=== PATIENT | female | born 1965 | race Caucasian/White ===

== ENCOUNTER → 2020-10-01 17:18 | Outpatient (CLI) | payer MEDICAID, SELFPAY ==
[2020-10-03 09:13] LABS: Hep A Ab, IgM Negative (Negative); Hepatitis B Core Antibody IgM Negative (Negative); Hepatitis B Surface Antigen Negative (Negative); Hepatitis C Antibody <0.1 s/co ratio (0.0-0.9)
== END ==
PROVIDERS: Visit Provider Nurse Practitioner Family
DX: B19.20 Unspecified viral hepatitis C without hepatic coma (principal); F19.10 Other psychoactive substance abuse, uncomplicated; Z76.89 Persons encountering health services in other specified circumstances
CPT/HCPCS: 80074

== ENCOUNTER 2022-08-03 17:30 | Emergency (ER) | payer MEDICAID, SELFPAY ==
[2022-08-03 17:45] VITALS: BP 128/98; PULSE 97; RESP 18; O2SAT 100; BMI 16.9
[2022-08-03 18:35] VITALS: BP 128/98; PULSE 97; RESP 18; TEMP 36.8; O2SAT 100; BMI 16.9
--- NOTE | 2022-08-03 19:01 | EXP.UTC ---
Discharge Plan Disposition Patient Disposition: Home, Self-Care Condition: Good Prescriptions Prescriptions: New amoxicillin 500 mg capsule 500 mg PO BID 10 Days Qty: 30 0RF No Action prednisone 20 mg tablet 20 mg PO BID 5 Days Qty: 10 0RF triamcinolone acetonide 0.5 % cream 1 applic TOPICAL BID Qty: 15 0RF benzonatate [Tessalon Perles] 100 mg capsule 100 mg PO TID PRN (Reason: cough) Qty: 20 0RF albuterol sulfate 90 mcg/actuation HFA aerosol inhaler 2 puff INHALATION Q4-6H PRN (Reason: shortness of breath or wheezing) Qty: 8.5 2RF Dulera 100-5 mcg/actuation HFA aerosol inhaler 2 puff INHALATION BID Qty: 13 2RF famotidine 20 mg tablet 20 mg PO DAILY Qty: 30 1RF hydroxyzine pamoate [Vistaril] 25 mg capsule 25 mg PO TID PRN (Reason: itching) Qty: 60 0RF Referrals Follow up/Referrals: Nadira Chavez MD [Referring] - See instructions (Call for appointment at the [place] office) Madhu Greenfield MD [Primary Care Provider] - See instructions Activity Restrictions/Add. Instructions Additional Instructions/Restrictions: Take medication as prescribed FOllow up with Dentist on broken teeth FOllow up with your Family Doctor as scheduled and sooner if no improvement or any worsening of symptoms Return if needed Straight to ER if any life threatening symptoms Clinical Impressions Clinical Impression: Dental infection, Otitis media Instructions Patient Instructions: Middle Ear Infection, Tooth Abscess Discharge ED Provider: Rhea Busch [facility] General Stated complaint: right ear pain, jaw pain Mode of Arrival: Ambulatory Source of Information: Patient Limitations: No Limitations Time Seen by Provider: 08/03/22 18:45 Description of Symptoms (Recalled from Triage Doc. by RN): PATIENT C/O RIGHT EAR AND JAW PAIN HEENT Symptoms (Recalled from RN notes): Yes Resp Symptoms (Recalled from RN notes): No Skin Symptoms (Recalled from RN notes): No MS Symptoms (Recalled from RN notes): No Functional Status (Recalled from RN notes): WNL History of Present Illness Provider Complaint: Patient states that she has been having pain in her right ear and has several broken and bad teeth and they area causing her pain States that also her brother recently came in and she thinks he may have had mites and give them too her but she hasnt seen anything on her States she also has a cyst like area on the top of her head that is been there for a couple of years wanting a referral to Dermatology for it Related Data Previous Rx's Medication Instructions Recorded benzonatate 100 mg capsule 100 mg PO TID PRN cough #20 caps 10/01/20 (Tessalon Perles) prednisone 20 mg tablet 20 mg PO BID 5 days #10 tabs 10/01/20 triamcinolone acetonide 0.5 % 1 applic topical BID #15 grams 10/01/20 topical cream albuterol sulfate 90 mcg/actuation 2 puff inhalation Q4-6H PRN 10/02/20 aerosol inhaler shortness of breath or wheezing #8.5 grams mometasone-formoterol HFA 100 2 puff inhalation BID #13 grams 10/02/20 mcg-5 mcg/actuation aerosol inhaler (Dulera) famotidine 20 mg tablet 20 mg PO DAILY #30 tabs 11/11/20 hydroxyzine pamoate 25 mg capsule 25 mg PO TID PRN itching #60 caps 11/11/20 (Vistaril) amoxicillin 500 mg capsule 500 mg PO BID 10 days #30 caps 08/03/22 Allergies Allergy/AdvReac Type Severity Reaction Status Date / Time No Known Allergies Allergy Unverified 10/01/20 15:17 Worker's Comp Is this a Worker's Comp case?: No PFSH PFS Disclaimer: The information contained in this section may have been updated after the patient was seen, as this information can be updated by other users. Social History Smoking Status: Current every day smoker tobacco type: cigarettes packs per day: 1 alcohol intake: current current occupational status: unemployed Travel in the last 8 weeks: None ROS Obtained: Yes All systems reviewed & no additional complaints except as documented Const
[2022-08-03 19:06] VITALS: BP 128/98; PULSE 97; RESP 18; TEMP 36.8; O2SAT 100
== END 2022-08-03 19:10 | disposition home or self-care (01) ==
LOC: ER 17:47 → UTC 17:47 → ER 18:21 → UTC 18:23
PROVIDERS: Emergency Provider Nurse Practitioner; PCP Emergency Medicine
DX: H66.91 Otitis media, unspecified, right ear (principal); R68.84 Jaw pain; K04.7 Periapical abscess without sinus; F17.210 Nicotine dependence, cigarettes, uncomplicated
CPT/HCPCS: 99204; 99212; G0463

== ENCOUNTER 2023-10-03 11:31 | Outpatient (CLI) | payer MEDICAID, SELFPAY ==
[2023-10-03 11:40] LABS: Alanine Aminotransferase 15 U/L (12-78); Albumin Level 4.6 g/dl (3.5-5.0); Albumin/Globulin Ratio 1.5 (1.1-1.8); Alkaline Phosphatase 71 U/L (38-126); Anion Gap 13.7 mEq/L (5-15); Aspartate Amino Transferase 27 U/L (14-36); Bilirubin,Total 0.4 mg/dl (0.2-1.3); Blood Urea Nitrogen 16 mg/dl (7-17); Calcium 10.9 mg/dl (8.4-10.2); Carbon Dioxide 30 mmol/L (22.0-30.0); Chloride 104 mmol/L (98-107); Cholesterol 247 mg/dl (140-200); Estimated Glomerular Filt Rate 87 ml/min (>60); GFR (African American) 105 ML/MIN (>60); Globulin 3.1 g/dL (1.3-3.2); Glucose 99 mg/dl (74-100); HDL Cholesterol 82 mg/dl (40-60); Potassium 5.7 mmoL/L (3.5-5.1); Sodium 142 mmol/L (136-145); Total Protein,Serum 7.7 g/dl (6.3-8.2); Triglycerides 113 mg/dl (30-150); VLDL Cholesterol 23 mg/dL (0-40)
[2023-10-03 11:43] LABS: Basophils # 0.1 K/mm3 (0-0.2); Basophils % 1.3 % (0.1-2.0); Eosinophils # 0.4 K/mm3 (0.0-0.4); Eosinophils % 4.9 % (0.1-12.0); Hematocrit 48.4 % (37.0-47.0); Hemoglobin 15.3 g/dL (12.2-16.2); Lymphocytes # 2.2 K/mm3 (0.7-4.5); Lymphocytes % 29.1 % (10-50); Mean Corpuscular HGB Conc 31.5 g/dL (31.8-35.4); Mean Corpuscular Hemoglobin 31.5 pg (27.0-31.2); Mean Corpuscular Volume 100.1 fl (81-99); Mean Platelet Volume 9.6 fl (7.4-10.4); Monocytes # 0.4 K/mm3 (0.1-1.0); Monocytes % 5.7 % (1.7-9.3); Neutrophils # 4.5 K/mm3 (1.8-7.8); Platelet Count 589 K/mm3 (142-424); Red Blood Count 4.84 M/mm3 (4.20-5.40); Red Cell Distribution Width 14.4 % (11.5-17.5); White Blood Count 7.6 K/mm3 (4.8-10.8)
[2023-10-03 11:56] LABS: 25-OH Vitamin D, Total 34.2 ng/mL (30-100)
[2023-10-03 11:59] LABS: Hemoglobin A1C 5.5 % (4.0-6.0)
[2023-10-03 12:11] LABS: Thyroid Stimulating Hormone 0.93 uIU/mL (0.465-4.68)
[2023-10-03 12:24] LABS: Direct LDL Cholesterol 132.88 mg/dL (100-129)
[2023-10-03 17:14] LABS: HIV (1&2) Antibody Rapid NONREACTIVE (NONREACTIVE)
[2023-10-04 05:28] LABS: HCV Ab Non Reactive (Non Reactive)
== END 2023-10-03 23:59 | disposition home or self-care (01) ==
LOC: LAB.DROPOF 11:32
PROVIDERS: PCP Family Medicine; Visit Provider Family Medicine
DX: F19.10 Other psychoactive substance abuse, uncomplicated (principal); R53.83 Other fatigue
CPT/HCPCS: 86803; 86703; 80050; 80053; 80061; 82306; 83036; 84443; 85025

== ENCOUNTER 2023-10-13 16:41 | Emergency (ER) | payer MEDICAID, SELFPAY ==
--- NOTE | 2023-10-13 16:55 | PC.NURSE ---
Attempted to traige patient. Upon arrival to room patient not in it. Went to registration who states she walked out.
--- NOTE | 2023-10-13 17:01 | XR_ITS ---
PROCEDURE INFORMATION: Exam: XR Right Humerus Exam date and time: 10/13/2023 5:02 PM Age: 58 years old Clinical indication: Injury or trauma; Fall; Blunt trauma (contusions or hematomas); Arm, upper; Right; Additional info: Fall, pain TECHNIQUE: Imaging protocol: Radiologic exam of the right humerus. Views: 2 or more views. COMPARISON: No relevant prior studies available. FINDINGS: Bones/joints: Normal. No acute fracture identified. Soft tissues: Normal. IMPRESSION: No acute findings.
--- NOTE | 2023-10-13 17:01 | XR_ITS ---
PROCEDURE INFORMATION: Exam: XR Right Elbow Exam date and time: 10/13/2023 5:05 PM Age: 58 years old Clinical indication: Injury or trauma; Fall; Blunt trauma (contusions or hematomas); Elbow; Right; Additional info: Fall, pain TECHNIQUE: Imaging protocol: Radiologic exam of the right elbow. Views: 1 or 2 views. COMPARISON: CR Forearm R 10/13/2023 5:05 PM FINDINGS: Bones/joints: Normal. No acute fracture identified. Soft tissues: Normal. IMPRESSION: No acute findings.
--- NOTE | 2023-10-13 17:01 | XR_ITS ---
PROCEDURE INFORMATION: Exam: XR Right Forearm Exam date and time: 10/13/2023 5:05 PM Age: 58 years old Clinical indication: Injury or trauma; Fall; Blunt trauma (contusions or hematomas); Arm, lower; Right; Additional info: Fall, pain TECHNIQUE: Imaging protocol: Radiologic exam of the right forearm. Views: 2 views. COMPARISON: CR XR WRIST RT 2V 10/13/2023 5:04 PM FINDINGS: Bones/joints: Normal. No acute fracture identified. Soft tissues: Normal. IMPRESSION: No acute findings.
--- NOTE | 2023-10-13 17:01 | XR_ITS ---
PROCEDURE INFORMATION: Exam: XR Right Wrist Exam date and time: 10/13/2023 5:04 PM Age: 58 years old Clinical indication: Injury or trauma; Fall; Blunt trauma (contusions or hematomas); Wrist; Right; Additional info: Fall, pain TECHNIQUE: Imaging protocol: Radiologic exam of the right wrist. Views: 1 or 2 views. COMPARISON: No relevant prior studies available. FINDINGS: Bones/joints: Normal. No acute fracture identified. Soft tissues: Normal. IMPRESSION: No acute findings.
[2023-10-13 17:02] VITALS: BP 148/55; PULSE 95; RESP 16; TEMP 36.6; O2SAT 99; BMI 18.6
--- NOTE | 2023-10-13 17:02 | HMH.EDGENADL ---
Discharge Plan Disposition Patient Disposition: Home, Self-Care Condition: Good Prescriptions Prescriptions: New acetaminophen 325 mg capsule 650 mg PO Q6H PRN (Reason: fever or pain) Qty: 30 0RF ibuprofen 600 mg tablet 600 mg PO Q8H PRN (Reason: pain) Qty: 30 0RF No Action albuterol sulfate [Proventil HFA] 90 mcg/actuation HFA aerosol inhaler 1 inh inhalation Q6H PRN (Reason: shortness of breath or wheezing) Qty: 8.5 0RF ibuprofen 600 mg tablet 600 mg PO Q8H Qty: 90 2RF bupropion HCl [Wellbutrin SR] 150 mg tablet sustained-release 12 hr 150 mg PO DAILY Qty: 30 2RF varenicline [Chantix Starting Month Box] 0.5 mg (11)- 1 mg (42) tablets,dose pack See Rx Instructions PO PER PKG DIR Qty: 53 0RF Rx Instructions: PO PER PKG DIR famotidine [Pepcid] 40 mg tablet 40 mg PO DAILY Qty: 30 2RF Referrals Follow up/Referrals: Vita Soriano APRN [Primary Care Provider] - See instructions Activity Restrictions/Add. Instructions Additional Instructions/Restrictions: You were evaluated in the emergency department today. At this time, x-rays do not demonstrate any broken bones. Please ice, elevate, and rest your arm to help reduce pain and swelling. Take Tylenol and ibuprofen every 4-6 hours at home as needed for pain. Return to the emergency department for new or worsening symptoms. Follow-up with your primary care provider over the next week for reassessment. Clinical Impressions Clinical Impression: Contusion of forearm, right Stand Alone Forms Stand Alone Forms: Work/School Release Instructions Patient Instructions: DI for Acute Pain -- Adult, DI for Arm Pain Print Language Print Language: Hungarian Discharge ED Provider: Veena Jackson General Adult HPI General Chief complaint: PAIN Stated complaint: AO 10/12/23 2100 injury right arm Time Seen by Provider: 10/13/23 16:56 History of Present Illness HPI narrative: This patient is a 58-year-old female who denies significant past medical history presenting to the emergency department for evaluation with concern for right arm pain. Patient reports that she was walking up wet deck steps yesterday around 9 PM when she slipped, landing on her left elbow. She did not fall the way down the steps. She did not hit her head or lose consciousness. No other concerns or complaints at this time. No numbness or tingling. Her pain is mostly at her right elbow and right forearm, and she has limited range of motion secondary to pain. Last dose of medication was ibuprofen around 1 PM. She was well prior to this without any other issues. Related Data Previous Rx's ?Medication ?Instructions ?Recorded albuterol sulfate 90 mcg/actuation 1 inh inhalation Q6H PRN shortness 10/03/23 aerosol inhaler (Proventil HFA) of breath or wheezing #8.5 grams bupropion HCl 150 mg tablet,12 hr 150 mg PO DAILY #30 ea 10/03/23 sustained-release (Wellbutrin SR) famotidine 40 mg tablet (Pepcid) 40 mg PO DAILY #30 tabs 10/03/23 ibuprofen 600 mg tablet 600 mg PO Q8H #90 tabs 10/03/23 varenicline 0.5 mg (11)-1 mg (42) See Rx Instructions PO PER PKG DIR 10/03/23 tablets in a dose pack (Chantix #53 tabs Starting Month Box) acetaminophen 325 mg capsule 650 mg (2 x 325 mg) PO Q6H PRN 10/13/23 fever or pain #30 caps ibuprofen 600 mg tablet 600 mg PO Q8H PRN pain #30 tabs 10/13/23 Allergies Allergy/AdvReac Type Severity Reaction Status Date / Time No Known Allergies Allergy Verified 10/03/23 08:38 [facility] Disclaimer: The information contained in this section may have been updated after the patient was seen, as this information can be updated by other users. Medical History Clavicle fracture Surgical History Hip joint replacement status Family History Other Cancer FHx: mental illness Social History Smoking Status: Current every day smoker tobacco type: cigarettes packs per day: 1 alcohol intake: current substance use type: marijuana current occupational status: unemployed Travel in the last 8 weeks: None ROS Obtained: Yes All systems reviewed & no additional complaints except as documented Physical Exam General General appearance: alert and in no apparent distress Head Head exam: atraumatic and normocephalic Eye Eye exam: Present normal appearance, PERRL and EOMI ENT ENT exam: Present normal exam, normal oropharynx, mucous membranes moist and normal external ear exam Neck Neck exam: Present normal inspection, full ROM and trachea midline; Absent tenderness Chest Chest inspection: Present normal inspection and symmetric chest wall rise; Absent tenderness Respiratory Respiratory exam: Present normal lung sounds bilaterally; Absent respiratory distress, wheezes, stridor or accessory muscle use Cardiovascular Cardiovascular exam: Present regular rate and normal rhythm Abdominal Exam Abdominal exam: Present soft; Absent distention, tenderness or guarding Extremities Exam Extremities exam: Present tenderness (Tender to palpation of the right elbow and proximal forearm. All compartments soft. Neurovascularly intact distally.), normal capillary refill and other (Superficial abrasions to the right forearm); Absent full ROM (Limited range of motion of the right elbow secondary to pain) or edema Back Exam Back exam: Present normal inspection and full ROM; Absent tenderness Neurological Exam Neurological exam: Present alert, oriented X3, CN II-XII intact and normal gait; Absent motor sensory deficit Psychiatric Psychiatric exam: Present normal affect and normal mood Skin Skin exam: Present warm and dry Medical Decision Making Medical Records Medical records reviewed: Yes I reviewed the patient's medical records. Frank Inquiry Pt receiving controlled substance: No Vital Signs: 10/13/23 17:02 10/13/23 18:03 Temperature 98 F 98 F Temperature Source Oral Pulse Rate 76 Pulse Rate [Left Radial] 95 H Respiratory Rate 16 16 Blood Pressure 101/72 L Blood Pressure [Right Arm] 148/55 H Blood Pressure Mean [Right Arm] 86 Blood Pressure Source [Right Arm] Automatic Cuff Blood Pressure Position [Right Arm] Sitting 02 Sat by Pulse Oximetry 99 Oxygen Delivery Method Room Air Room Air Lab Data Lab results reviewed: Yes I reviewed the patient's lab results. Orders (Tests/Meds): ED MEDICATIONS Discontinued Medications Generic Name Dose Route Start Last Admin Trade Name Freq PRN Reason Stop Dose Admin Acetaminophen 1,000 mg 10/13/23 17:01 10/13/23 17:08 Acetaminophen 500mg Tab PO 10/13/23 17:02 1,000 mg ONCE ONE Administration Ketorolac Tromethamine 30 mg 10/13/23 17:01 10/13/23 17:07 Ketorolac 30mg/Ml Vial IM 10/13/23 17:02 30 mg ONCE ONE Administration ORDERS Category Date Time Status Elbow XR right 2 views [XR elbow RT 2V] Stat Exams 10/13/23 17:01 Completed Forearm XR right 2 views [XR forearm RT 2V] Stat Exams 10/13/23 17:01 Completed Humerus XR right [XR humerus RT] Stat Exams 10/13/23 17:01 Completed Wrist XR right 2 views [XR wrist RT 2V] Stat Exams 10/13/23 17:01 Completed Medical Decision Narrative: In summary, this patient is a 58-year-old female presenting to the Emergency Department for evaluation of right elbow pain after a fall that happened yesterday. Differential diagnoses considered include but are not limited to fracture, contusion, dislocation, strain/pain, neurovascular injury. Ruling out the most morbid conditions drove assessment. On exam, the patient is well-appearing. She is neurovascularly intact and all compartments are soft. No open wounds overlying area of pain Workup included x-rays of the injured right upper extremity. She was given IM Toradol and oral Tylenol for symptomatic improvement of pain. I independently interpreted x-ray prior to the radiologist read and noted obvious acute fracture or dislocation. Please see their read for final interpretation. On reassessment, the patient is resting comfortably. She remains neurologically intact in her upper extremity. She has significant pain with movement, so she was given sling for comfort and support. I advised that she follow-up very closely with her primary care provider for monitoring and should only use the sling as needed for severe discomfort, as she needs to maintain mobility is much as possible. I gave her instructions for supportive management of likely contusion/strain/sprain. She was given prescriptions for Tylenol and ibuprofen at her request. She was discharged with strict return precautions and instructions for close outpatient follow-up. Critical Care Critical Care Time Critical Care Time: No
[2023-10-13] MEDS: KETOROLAC 30MG/ML VIAL 30 MG IM (17:07)
[2023-10-13] MEDS: ACETAMINOPHEN 500MG TAB 1000 MG PO (17:08)
[2023-10-13 18:03] VITALS: BP 101/72; PULSE 76; RESP 16; TEMP 36.6; O2SAT 98
== END 2023-10-13 18:04 | disposition home or self-care (01) ==
PROVIDERS: Emergency Provider Emergency Medicine; PCP Family Medicine
DX: S50.11XA Contusion of right forearm, initial encounter (principal); M79.631 Pain in right forearm; M25.521 Pain in right elbow; W10.8XXA Fall (on) (from) other stairs and steps, initial encounter
CPT/HCPCS: 73060; 73070; 73090; 73100; 96372; 99283; J1885

== ENCOUNTER 2024-02-01 16:31 | Emergency (ER) | payer MEDICAID, SELFPAY ==
[2024-02-01] VITALS (7 sets, daily range): BP systolic 114–164; BP diastolic 62–94; PULSE 91–121; RESP 14–20; TEMP 37; O2SAT 98–99; BMI 19.3
--- NOTE | 2024-02-01 16:32 | ECG_ITS ---
APPROVED REPORT Exam: Resting ECG HR:106 bpm ECG Measurements Heart Rate 106 AXES NE 183 P 77 QRSd 74 QRS 86 QT 326 T 76 QTc 388 Conclusion SINUS TACHYCARDIA POSSIBLE LEFT ATRIAL ENLARGEMENT [-0.1mV P-WAVE IN V1/V2] ABNORMAL RHYTHM ECG Electronically signed by : SHAYLEE GARCIA, 02/01/2024 23:09:00
--- NOTE | 2024-02-01 16:43 | ED_ITS ---
<Statement entered by Veena Jackson DO - 02/01/24 19:45> I was consulted by the JASE, and we discussed the complexity of the problems being addressed. I approved the treatment and management plan for this patient's care in the emergency department, thus performing a substantive portion of the medical decision making. Veena Jackson DO Discharge Plan Prescriptions Prescriptions: No Action omeprazole 20 mg capsule,delayed release(DR/EC) 20 mg PO DAILY Qty: 90 2RF cetirizine [All Day Allergy (cetirizine)] 10 mg tablet 10 mg PO DAILY PRN (Reason: allergy symptoms) Qty: 30 0RF amoxicillin 500 mg tablet 500 mg PO BID 10 Days Qty: 20 0RF azelastine 137 mcg (0.1 %) spray,non-aerosol 137 mcg intranasal BID Qty: 8.22 2RF Rx Instructions: administer into each nostril amitriptyline 75 mg tablet 75 mg PO DAILY Qty: 30 2RF acyclovir 800 mg tablet 800 mg PO BID PRN (Reason: cold sores) Qty: 30 2RF albuterol sulfate [Ventolin HFA] 90 mcg/actuation HFA aerosol inhaler See Rx Instructions .ROUTE .COMPLEX Qty: 18 0RF Dose Instruction: 1 PUFF INHALED BY MOUTH EVERY 6 HOURS NEEDED FOR SHORTNESS OF BREATH OR WHEEZING Rx Instructions: 1 PUFF INHALED BY MOUTH EVERY 6 HOURS NEEDED FOR SHORTNESS OF BREATH OR WHEEZING ibuprofen 600 mg tablet 600 mg PO Q8H PRN (Reason: pain) Qty: 30 0RF promethazine 12.5 mg tablet 12.5 mg PO TID PRN (Reason: nausea and vomiting) Qty: 12 0RF promethazine-DM 6.25-15 mg/5 mL syrup 5 ml PO Q4-6H PRN (Reason: cough) Qty: 473 0RF acetaminophen 325 mg capsule 650 mg PO Q6H PRN (Reason: fever or pain) Qty: 30 0RF Referrals Follow up/Referrals: Roseline Nina APRN [Nurse Practitioner] - See instructions Provider,MD Evelin [Referring] - See instructions Greg Borjas MD [Staff Physician] - See instructions Activity Restrictions/Add. Instructions Additional Instructions/Restrictions: I have referred you both to cardiology for further workup and restratification given your risk factors and age. I have also referred you to behavioral health for possibility of better management of your anxiety disorder. Please follow-up with your PCP within 1 week for recheck. Follow-up with PCP sooner if you have recurrence or worsening of her symptoms or return to the ER as needed Clinical Impressions Clinical Impression: Acute chest pain, ANANDA (generalized anxiety disorder) Instructions Patient Instructions: DI for Chest Pain, DI for Anxiety -- Adult Print Language Print Language: Palauan Discharge ED Provider: Veena Jackson HPI <SAEED Robles - Last Filed: 02/01/24 19:27> General Chief Complaint: Chest Pain Stated Complaint: Chest Pain, Leg Pain, Back Pain Time Seen by Provider: 02/01/24 16:35 History of Present Illness HPI narrative: Patient presents for evaluation of chest pain. Patient reports that she has had chest pain that she describes as chest pressure, since 630 last night. She states that the provoking event is a lot of stress and conflict in her family and personal life. She does not have a known history of cardiac disease but does have a known history of anxiety and to the best my ability determinates only being managed with amitriptyline at bedtime. She states that the pain does not radiate and since 630 this morning it has been continuous. She denies any headache shortness of breath fever chills hemoptysis hematochezia melena nausea vomiting diarrhea. She does report feeling extraordinarily anxious. Related Data Previous Rx's ?Medication ?Instructions ?Recorded acetaminophen 325 mg capsule 650 mg (2 x 325 mg) PO Q6H PRN 10/13/23 fever or pain #30 caps albuterol sulfate 90 mcg/actuation See Rx Instructions .Route 11/07/23 aerosol inhaler (Ventolin HFA) .COMPLEX #18 grams acyclovir 800 mg tablet 800 mg PO BID PRN cold sores #30 01/06/24 tabs amitriptyline 75 mg tablet 75 mg PO DAILY #30 tabs 01/06/24 amoxicillin 500 mg tablet 500 mg PO BID 10 days #20 tabs 01/06/24 azelastine 137 mcg (0.1 %) nasal 137 mcg (0.137 mL) intranasal BID 01/06/24 spray #8.22 mL cetirizine 10 mg tablet (All Day 10 mg PO DAILY PRN allergy 01/06/24 Allergy (cetirizine)) symptoms #30 tabs omeprazole 20 mg capsule,delayed 20 mg PO DAILY #90 caps 01/06/24 release ibuprofen 600 mg tablet 600 mg PO Q8H PRN pain #30 tabs 01/31/24 promethazine 12.5 mg tablet 12.5 mg PO TID PRN nausea and 01/31/24 vomiting #12 tabs promethazine-DM 6.25 mg-15 mg/5 mL 5 ml PO Q4-6H PRN cough #473 mL 02/01/24 oral syrup Allergies Allergy/AdvReac Type Severity Reaction Status Date / Time No Known Allergies Allergy Verified 01/06/24 14:35 PFSH <SAEDE Robles - Last Filed: 02/01/24 19:27> [facility] Disclaimer: The information contained in this section may have been updated after the patient was seen, as this information can be updated by other users. Medical History (Updated 02/01/24 @ 19:20 by SAEED Robles) Colon cancer screening Clavicle fracture Surgical History Hip joint replacement status Family History Other Cancer FHx: mental illness Social History Smoking Status: Current every day smoker tobacco type: cigarettes packs per day: 1 alcohol intake: current substance use type: marijuana current occupational status: unemployed Travel in the last 8 weeks: None Other Medical History Have you received the Flu Vaccine for this season: No Have you received the Pneumonia Vaccine: No <SAEED Robles - Last Filed: 02/01/24 19:27> ROS Obtained: Yes Systems reviewed as appropriate & no additional complaints except as documented Physical Exam <SAEED Robles - Last Filed: 02/01/24 19:27> General General appearance: alert and in no apparent distress Respiratory Respiratory exam: Present normal lung sounds bilaterally Cardiovascular Cardiovascular exam: Present tachycardia Neurological Exam Neurological exam: Present alert and oriented X3 HEART Score <SAEED Robles - Last Filed: 02/01/24 19:27> HEART Score HEART Score assessment performed?: Yes History (anamnesis): Slightly suspicious ECG: Non-specific disturbance Age: 45-65 years Risk factors: 1-2 risk factors Troponin: </= normal limit HEART Score: 3 Critical Care <SAEED Robles - Last Filed: 02/01/24 19:27> Critical Care Time Critical Care Time: No Medical Decision Making <SAEED Robles - Last Filed: 02/01/24 19:27> Medical Records Medical records reviewed: Yes I reviewed the patient's medical records. Frank Inquiry Pt receiving controlled substance: No Vital Signs Vital Signs: 02/01/24 16:31 02/01/24 16:35 02/01/24 16:46 Temperature 98.6 F Temperature Source Oral Pulse Rate 114 H 121 H Pulse Rate [Right Radial] 121 H Respiratory Rate 20 18 Blood Pressure 164/94 H Blood Pressure [Right Arm] 164/94 H Blood Pressure Mean Blood Pressure Mean [Right Arm] 117 02 Sat by Pulse Oximetry 98 99 Oxygen Delivery Method Room Air Room Air 02/01/24 17:18 02/01/24 17:30 02/01/24 18:40 Temperature Temperature Source Pulse Rate 106 H 111 H 91 H Pulse Rate [Right Radial] Respiratory Rate 17 14 Blood Pressure 116/62 114/64 138/87 Blood Pressure [Right Arm] Blood Pressure Mean 80 80 Blood Pressure Mean [Right Arm] 02 Sat by Pulse Oximetry 98 98 98 Oxygen Delivery Method Room Air Room Air Room Air Lab Data Lab results reviewed: Yes I reviewed the patient's lab results. Labs: Lab Results 02/01/24 16:48: WBC 6.4, RBC 4.32, Hgb 13.5, Hct 39.7, MCV 91.8, MCH 31.2, MCHC 34.0, RDW 13.1, Plt Count 332, MPV 7.0 L, Neut % (Auto) 70.0, Lymph % (Auto) 20.6, [place] % (Auto) 5.7, Eos % (Auto) 1.4, Baso % (Auto) 2.3 H, Neut # (Auto) 4.5, Lymph # (Auto) 1.3, [place] # (Auto) 0.4, Eos # (Auto) 0.1, Baso # (Auto) 0.2, PT 10.0 L, INR 0.88 L, D-Dimer 0.75 H, Sodium 138, Potassium 3.7, Chloride 104, Carbon Dioxide 25, Anion Gap 12.7, BUN 13, Creatinine 0.70, Estimated Creat Clear 77, Estimated GFR 87, Est GFR ( Amer) 105, Glucose 166 H, Calcium 8.9, Magnesium 1.5 L, Total Bilirubin 0.4, AST 27, ALT 15, Alkaline Phosphatase 58, Troponin I 0.02, Total Protein 7.1, Albumin 4.4, Globulin 2.7, Albumin/Globulin Ratio 1.6, TSH 1.51, Free T4 Index 3.2 L, Thyroxine (T4) 11.0, T3 Uptake 29 02/01/24 18:13: Troponin I 0.02 02/01/24 16:48 02/01/24 16:48 Response Orders (Tests/Meds): ED MEDICATIONS Generic Name Dose Route Start Last Admin Trade Name Frejuan PRN Reason Stop Dose Admin Sodium Chloride 10 ml 02/01/24 16:43 Sodium Chloride 0.9% 10ml Vial IV 03/02/24 16:42 NEEDED PRN to Dilute Lorazepam inj Sodium Chloride 10 ml 02/01/24 18:42 02/01/24 18:44 Sodium Chloride 0.9% 10ml Syr (Rad Only) IV 03/02/24 18:41 10 ml NEEDED PRN Administration Maintain IV Site Discontinued Medications Generic Name Dose Route Start Last Admin Trade Name Freq PRN Reason Stop Dose Admin Acetaminophen 1,000 mg 02/01/24 16:43 02/01/24 16:54 Acetaminophen 1,000mg/100ml Vial IV 02/01/24 16:44 1,000 mg ONCE ONE Administration Sodium Chloride 1,000 mls @ 999 mls/hr 02/01/24 17:53 02/01/24 18:03 Sod Chlor 0.9% 1000ml Bag IV 02/01/24 18:53 999 mls/hr .Q1H1M ONE Administration Magnesium Sulfate 2 gm in 50 mls @ 50 mls/hr 02/01/24 18:09 02/01/24 18:12 Magnesium Sulfate 2gm/50ml Premix IV 02/01/24 19:08 50 mls/hr ONCE ONE Administration Iopamidol 70 ml 02/01/24 18:42 02/01/24 18:43 Iopamidol-370 (76%);100ml Bottle IV 02/01/24 18:43 70 ml ONCE ONE Administration Ketorolac Tromethamine 15 mg 02/01/24 16:43 02/01/24 16:55 Ketorolac 30mg/Ml Vial IV 02/01/24 16:44 15 mg ONCE ONE Administration Lorazepam 0.5 mg 02/01/24 16:43 02/01/24 16:55 Lorazepam 2mg/Ml Vial IV 02/01/24 16:44 0.5 mg ONCE ONE Administration Ondansetron HCl 4 mg 02/01/24 16:43 02/01/24 16:54 Ondansetron 4mg/2ml Vial IV 02/01/24 16:44 4 mg ONCE ONE Administration Sodium Chloride 50 ml 02/01/24 18:42 02/01/24 18:43 0.9 % Sodium Chloride 50 Ml Vial IV 02/01/24 18:43 50 ml ONCE ONE Administration ORDERS Category Date Time Status CTA Chest [CT angio chest PE protocol] Stat Cat Scan 02/01/24 17:53 Taken Chest XR 2 view (NOT portable) [XR chest 2V] Stat Exams 02/01/24 16:43 Completed CBC w/Auto Diff [Complete Blood Count Auto Diff] Stat Lab 02/01/24 16:48 Completed CMP [Comprehensive Metabolic Panel] Stat Lab 02/01/24 16:48 Completed D-Dimer Stat Lab 02/01/24 16:48 Completed INR [Prothrombin Time INR] Stat Lab 02/01/24 16:48 Completed Magnesium Stat Lab 02/01/24 16:48 Completed Thyroid Panel Stat Lab 02/01/24 16:48 Completed Trop I [Troponin I] Stat Lab 02/01/24 16:48 Completed Troponin I Q3H Lab 02/01/24 18:13 Completed Troponin I Q3H Lab 02/01/24 22:45 Ordered UA [Urinalysis and Microscopic] Stat Lab 02/01/24 16:44 Ordered MDM Narrative Medical Decision Narrative: In summary patient is a 58-year-old female who presents to the emergency department for evaluation of pain. Patient is normotensive with a blood pressure 164/94 tachycardic into 121 but satting at 98% on room air breathing 20 times a minute upon arrival, afebrile. Physical exam is remarkable for nonreproducible chest pressure on examination/palpation with normal heart sounds although it is sinus tachycardia on the bedside monitor. Lung sounds are clear and equal bilaterally to the bases without adventitious sounds. Patient is visibly anxious but otherwise in no distress. Differential diagnosis includes panic attack versus ACS versus PE versus cardiac arrhythmia etc. Initial workup will be conducted with twelve-lead EKG plain film chest x-ray hematologic labs. Initial interventions include Tylenol Zofran Toradol Ativan. Initial workup reviewed by me shows that her white count is normal with no shift, D-dimer 0.75 troponin is normal with a flat delta of 0.02 she did have low magnesium of 1.5 which was repleted and the remainder of her hematologic labs are nonactionable, my informal interpretation CT PE protocol does not show any thrombus or acute processes in the chest.. Upon repeat evaluation patient reported improvement in her subjective symptoms after initial intervention. Given this patient is appropriate for discharge with referrals to both cardiology for further restratification TYLER as well as behavioral health for better management of her anxiety. <Veena Jackson, DO - Last Filed: 02/01/24 17:10> Vital Signs Vital Signs: 02/01/24 16:31 02/01/24 16:35 02/01/24 16:46 Temperature 98.6 F Temperature Source Oral Pulse Rate 114 H 121 H Pulse Rate [Right Radial] 121 H Respiratory Rate 20 18 Blood Pressure 164/94 H Blood Pressure [Right Arm] 164/94 H Blood Pressure Mean Blood Pressure Mean [Right Arm] 117 02 Sat by Pulse Oximetry 98 99 Oxygen Delivery Method Room Air Room Air 02/01/24 17:18 02/01/24 17:30 02/01/24 18:40 Temperature Temperature Source Pulse Rate 106 H 111 H 91 H Pulse Rate [Right Radial] Respiratory Rate 17 14 Blood Pressure 116/62 114/64 138/87 Blood Pressure [Right Arm] Blood Pressure Mean 80 80 Blood Pressure Mean [Right Arm] 02 Sat by Pulse Oximetry 98 98 98 Oxygen Delivery Method Room Air Room Air Room Air Lab Data Labs: Lab Results 02/01/24 16:48: WBC 6.4, RBC 4.32, Hgb 13.5, Hct 39.7, MCV 91.8, MCH 31.2, MCHC 34.0, RDW 13.1, Plt Count 332, MPV 7.0 L, Neut % (Auto) 70.0, Lymph % (Auto) 20.6, [place] % (Auto) 5.7, Eos % (Auto) 1.4, Baso % (Auto) 2.3 H, Neut # (Auto) 4.5, Lymph # (Auto) 1.3, [place] # (Auto) 0.4, Eos # (Auto) 0.1, Baso # (Auto) 0.2, PT 10.0 L, INR 0.88 L, D-Dimer 0.75 H, Sodium 138, Potassium 3.7, Chloride 104, Carbon Dioxide 25, Anion Gap 12.7, BUN 13, Creatinine 0.70, Estimated Creat Clear 77, Estimated GFR 87, Est GFR ( Amer) 105, Glucose 166 H, Calcium 8.9, Magnesium 1.5 L, Total Bilirubin 0.4, AST 27, ALT 15, Alkaline Phosphatase 58, Troponin I 0.02, Total Protein 7.1, Albumin 4.4, Globulin 2.7, Albumin/Globulin Ratio 1.6, TSH 1.51, Free T4 Index 3.2 L, Thyroxine (T4) 11.0, T3 Uptake 29 02/01/24 18:13: Troponin I 0.02 Response Orders (Tests/Meds): ED MEDICATIONS Generic Name Dose Route Start Last Admin Trade Name Freq PRN Reason Stop Dose Admin Sodium Chloride 10 ml 02/01/24 16:43 Sodium Chloride 0.9% 10ml Vial IV 03/02/24 16:42 NEEDED PRN to Dilute Lorazepam inj Sodium Chloride 10 ml 02/01/24 18:42 02/01/24 18:44 Sodium Chloride 0.9% 10ml Syr (Rad Only) IV 03/02/24 18:41 10 ml NEEDED PRN Administration Maintain IV Site Discontinued Medications Generic Name Dose Route Start Last Admin Trade Name Freq PRN Reason Stop Dose Admin Acetaminophen 1,000 mg 02/01/24 16:43 02/01/24 16:54 Acetaminophen 1,000mg/100ml Vial IV 02/01/24 16:44 1,000 mg ONCE ONE Administration Sodium Chloride 1,000 mls @ 999 mls/hr 02/01/24 17:53 02/01/24 18:03 Sod Chlor 0.9% 1000ml Bag IV 02/01/24 18:53 999 mls/hr .Q1H1M ONE Administration Magnesium Sulfate 2 gm in 50 mls @ 50 mls/hr 02/01/24 18:09 02/01/24 18:12 Magnesium Sulfate 2gm/50ml Premix IV 02/01/24 19:08 50 mls/hr ONCE ONE Administration Iopamidol 70 ml 02/01/24 18:42 02/01/24 18:43 Iopamidol-370 (76%);100ml Bottle IV 02/01/24 18:43 70 ml ONCE ONE Administration Ketorolac Tromethamine 15 mg 02/01/24 16:43 02/01/24 16:55 Ketorolac 30mg/Ml Vial IV 02/01/24 16:44 15 mg ONCE ONE Administration Lorazepam 0.5 mg 02/01/24 16:43 02/01/24 16:55 Lorazepam 2mg/Ml Vial IV 02/01/24 16:44 0.5 mg ONCE ONE Administration Ondansetron HCl 4 mg 02/01/24 16:43 02/01/24 16:54 Ondansetron 4mg/2ml Vial IV 02/01/24 16:44 4 mg ONCE ONE Administration Sodium Chloride 50 ml 02/01/24 18:42 02/01/24 18:43 0.9 % Sodium Chloride 50 Ml Vial IV 02/01/24 18:43 50 ml ONCE ONE Administration ORDERS Category Date Time Status CTA Chest [CT angio chest PE protocol] Stat Cat Scan 02/01/24 17:53 Taken Chest XR 2 view (NOT portable) [XR chest 2V] Stat Exams 02/01/24 16:43 Completed CBC w/Auto Diff [Complete Blood Count Auto Diff] Stat Lab 02/01/24 16:48 Completed CMP [Comprehensive Metabolic Panel] Stat Lab 02/01/24 16:48 Completed D-Dimer Stat Lab 02/01/24 16:48 Completed INR [Prothrombin Time INR] Stat Lab 02/01/24 16:48 Completed Magnesium Stat Lab 02/01/24 16:48 Completed Thyroid Panel Stat Lab 02/01/24 16:48 Completed Trop I [Troponin I] Stat Lab 02/01/24 16:48 Completed Troponin I Q3H Lab 02/01/24 18:13 Completed Troponin I Q3H Lab 02/01/24 22:45 Ordered UA [Urinalysis and Microscopic] Stat Lab 02/01/24 16:44 Ordered ECG Data Tracing #1: Attestation: I reviewed this ECG and interpreted as documented below: ECG Narrative: Sinus tachycardia with a ventricular to [address] changes concerning for ischemia. Normal axis and intervals. ECG initial impression date: 02/01/24 ECG initial impression time: 16:33
--- NOTE | 2024-02-01 16:43 | XR_ITS ---
PROCEDURE INFORMATION: Exam: XR Chest Exam date and time: 02/01/2024 5:02 PM Age: 58 years old Clinical indication: Sternal or substernal pain; Additional info: Chest pain TECHNIQUE: Imaging protocol: Radiologic exam of the chest. Views: 2 views. COMPARISON: CR XR HUMERUS RT 10/13/2023 5:02 PM FINDINGS: Lungs: The lungs appear clear. No focal areas of consolidation. Pleural spaces: No pleural effusions. Negative for pneumothorax. Heart/Mediastinum: Cardiac silhouette and pulmonary vasculature are within range of normal. Bones/joints: There is no evidence of acute fracture. IMPRESSION: Negative for an acute cardiopulmonary abnormality.
[2024-02-01] MEDS: ACETAMINOPHEN 1,000MG/100ML VIAL 1000 MG IV (16:54)
[2024-02-01] MEDS: ONDANSETRON 4MG/2ML VIAL 4 MG IV (16:54)
[2024-02-01] MEDS: KETOROLAC 30MG/ML VIAL 15 MG IV (16:55)
[2024-02-01] MEDS: LORazepam 2MG/ML VIAL 0.5 MG IV (16:55)
[2024-02-01 16:57] LABS: Basophils # 0.2 K/mm3 (0-0.2); Basophils % 2.3 % (0.1-2.0); Eosinophils # 0.1 K/mm3 (0.0-0.4); Eosinophils % 1.4 % (0.1-12.0); Hematocrit 39.7 % (37.0-47.0); Hemoglobin 13.5 g/dL (12.2-16.2); Lymphocytes # 1.3 K/mm3 (0.7-4.5); Lymphocytes % 20.6 % (10-50); Mean Corpuscular Hemoglobin 31.2 pg (27.0-31.2); Mean Corpuscular Volume 91.8 fl (81-99); Monocytes # 0.4 K/mm3 (0.1-1.0); Monocytes % 5.7 % (1.7-9.3); Neutrophils # 4.5 K/mm3 (1.8-7.8); Platelet Count 332 K/mm3 (142-424); Red Blood Count 4.32 M/mm3 (4.20-5.40); Red Cell Distribution Width 13.1 % (11.5-17.5); White Blood Count 6.4 K/mm3 (4.8-10.8)
[2024-02-01 17:05] LABS: Albumin Level 4.4 g/dl (3.5-5.0); Chloride 104 mmol/L (98-107); Potassium 3.7 mmoL/L (3.5-5.1); Sodium 138 mmol/L (136-145)
[2024-02-01 17:06] LABS: INR 0.88 (0.9-1.1)
[2024-02-01 17:08] LABS: Alanine Aminotransferase 15 U/L (12-78); Albumin/Globulin Ratio 1.6 (1.1-1.8); Alkaline Phosphatase 58 U/L (38-126); Anion Gap 12.7 mEq/L (5-15); Aspartate Amino Transferase 27 U/L (14-36); Bilirubin,Total 0.4 mg/dl (0.2-1.3); Blood Urea Nitrogen 13 mg/dl (7-17); Carbon Dioxide 25 mmol/L (22.0-30.0); Creatinine Clearance Estimated 77 mL/min (50-200); Estimated Glomerular Filt Rate 87 ml/min (>60); GFR (African American) 105 ML/MIN (>60); Globulin 2.7 g/dL (1.3-3.2); Total Protein,Serum 7.1 g/dl (6.3-8.2)
[2024-02-01 17:09] LABS: Calcium 8.9 mg/dl (8.4-10.2); Glucose 166 mg/dl (74-100)
--- NOTE | 2024-02-01 17:12 | PC.NURSE ---
Patient is gone out of the room to XRAY.
[2024-02-01 17:20] LABS: Troponin I 0.02 ng/ml (0.00-0.034)
[2024-02-01 17:26] LABS: Magnesium 1.5 mg/dl (1.6-2.3)
[2024-02-01 17:31] LABS: D-Dimer 0.75 ug/mL (0.0-0.5)
[2024-02-01 17:43] LABS: Triiodothryronine (T3) Uptake 29 % (23.5-40.5)
[2024-02-01 17:44] LABS: Free Thyroxine Index 3.2 ug/dL (5.93-13.13)
--- NOTE | 2024-02-01 17:53 | CT_ITS ---
PROCEDURE INFORMATION: Exam: CTA Chest With Contrast Exam date and time: 02/01/2024 6:28 PM Age: 58 years old Clinical indication: Pain and abnormal findings; Abnormal diagnostic tests; Elevated d-dimer; Chest pressure; Additional info: Chest pain, elevated dimer TECHNIQUE: Imaging protocol: Computed tomographic angiography of the chest with contrast. Exam focused on the arteries. 3D rendering (Not supervised by radiologist): MIP and/or 3D reconstructed images were created by the technologist. Radiation optimization: All CT scans at this facility use at least one of these dose optimization techniques: automated exposure control; mA and/or kV adjustment per patient size (includes targeted exams where dose is matched to clinical indication); or iterative reconstruction. Contrast material: ISOVUE 370; Contrast volume: 70 ml; Contrast route: INTRAVENOUS (IV); COMPARISON: CR XR CHEST 2V 02/01/2024 5:02 PM FINDINGS: Pulmonary arteries: There is no evidence of filling defects within the pulmonary arterial circulation to suggest pulmonary embolism. Aorta: There is no evidence of an aortic aneurysm. There is no evidence of aortic dissection, leak, rupture, or other acute vascular pathology. 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 Thyroid: The thyroid gland is normal. Lungs: There is a 3 mm subpleural nodule in the right lower lobe seen on series 3, image 61. There is a subpleural nodule in the left lower lobe measuring 5.7 mm. There is a 4 mm nodule in the left lower lobe seen on series 3, image 69. There is a 5.4 mm nodule in the left upper lobe seen on series 3, image 58. There is a calcified granuloma in the right mid lung. No focal areas of consolidation. Pleural spaces: There are no pleural effusions. No pneumothorax. Heart: The heart is not enlarged. There is a small pericardial fluid collection present. There is a trace amount of pericardial fluid. Coronary arteries: There is moderate atherosclerotic calcification of the coronary arteries. Lymph nodes: There is no evidence of pathologic adenopathy. Diaphragm: A moderate hiatal hernia is present. Bones/joints: The thoracic spine demonstrates mild degenerative changes at multiple levels. Soft tissues: No significant soft tissue edema. IMPRESSION: 1. No evidence of pulmonary embolism. 2. Small to moderate hiatal hernia. 3. 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 4. A few scattered nodular densities in the lungs bilaterally, none measuring larger than 6 mm. For patients at low risk (minimal or absent history of smoking and of other known risk factors), no routine follow-up is indicated. For patients at high risk (history of smoking or of other known risk factors), consider optional CT Chest at 12 months. (Reference: Lionel) REFERENCES: Lionel H, et al. Guidelines for Management of Incidental Pulmonary Nodules Detected on CT Images: From the Fleischner Society 2017. Radiology. 2017;284(1):228-243. Findings were discussed with SAEED Dailey at 02/01/2024 7:21 PM EST.
[2024-02-01 17:57] LABS: Thyroid Stimulating Hormone 1.51 uIU/mL (0.465-4.68)
[2024-02-01] MEDS: 0.9 % SODIUM CHLORIDE 1000ML 1,000 ML 999 ML IV (18:03)
[2024-02-01] MEDS: MAGNESIUM SULFATE IN WATER 2 GM/50 ML PIGGYBACK IV (18:12)
--- NOTE | 2024-02-01 18:39 | PC.NURSE ---
Patient is back in the room from CT.
[2024-02-01 18:43] LABS: Troponin I 0.02 ng/ml (0.00-0.034)
[2024-02-01] MEDS: IOPAMIDOL-370 (76%);100ML BOTTLE 70 ML IV (18:43)
[2024-02-01] MEDS: 0.9 % SODIUM CHLORIDE 50 ML VIAL IV (18:43)
[2024-02-01] MEDS: SODIUM CHLORIDE 0.9% 10ML SYR (RAD ONLY) 10 ML IV (18:44)
== END 2024-02-01 19:39 | disposition home or self-care (01) ==
PROVIDERS: Physician Assistant; Emergency Provider Emergency Medicine; PCP Family Medicine
DX: R07.9 Chest pain, unspecified (principal); F41.1 Generalized anxiety disorder; M54.9 Dorsalgia, unspecified
CPT/HCPCS: 71046; 71275; 80050; 80053; 83735; 84436; 84443; 84479; 84484; 85025; 85378; 85610; 93005; 96361; 96365; 96374; 96375; 99285; J0131; J1885; J2060; J2405; J3475; J7030; Q9967

== ENCOUNTER 2024-04-11 19:22 | Emergency (ER) | payer MEDICAID, SELFPAY ==
--- NOTE | 2024-04-11 19:50 | PC.NURSE ---
Pt awake alert and oriented x3 Laceration noted to left Thumb Bleeding controlled Skin pink warm and dry Resp full and easy Speech clear and appropriate. Pt states she picked up her cat who then got scared or mad and scratched her. Report given to Korin HUTTON
[2024-04-11 20:00] VITALS: BP 139/82; PULSE 88; RESP 20; TEMP 37.1; O2SAT 97; BMI 18.6
--- NOTE | 2024-04-11 20:13 | XR_ITS ---
PROCEDURE INFORMATION: Exam: XR Left Hand Exam date and time: 04/11/2024 8:20 PM Age: 58 years old Clinical indication: Injury or trauma; Other: Cat scratch/bite; Bleeding/hemorrhage; Hand; Left; Additional info: Cat scratch/bite. Pain left thumb TECHNIQUE: Imaging protocol: Radiologic exam of the left hand. Views: 1 or 2 views. COMPARISON: No relevant prior studies available. FINDINGS: Bones/joints: See Soft tissues finding. Soft tissues: Moderate left thumb soft tissue swelling without acute osseous abnormality. No radiopaque foreign bodies identified at the soft tissues of the left thumb. IMPRESSION: 1. Moderate left thumb soft tissue swelling without acute osseous abnormality. 2. No radiopaque foreign bodies identified at the soft tissues of the left thumb.
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
[2024-04-11 20:32] VITALS: BP 125/74; PULSE 88; O2SAT 98
[2024-04-11] MEDS: TET/DIPHTH/PERT-ADULT 0.5ML SYRINGE 0.5 ML IM (20:40)
[2024-04-11] MEDS: LIDOCAINE 2% UROJET 10ML TP (21:22)
[2024-04-11] MEDS: EPINEPHrine 1 MG/ML AMPUL TP (21:40)
--- NOTE | 2024-04-11 21:49 | PC.NURSE ---
PT GIVEN COPIES OF TDAP DOCUMENTATION, OTHERS PLACED IN CHART. PT AWAITING SUTURING. BLEEDING STILL CONTROLLED.
[2024-04-11 22:12] VITALS: BP 125/74; PULSE 87; RESP 16; TEMP 36.6; O2SAT 98
== END 2024-04-11 22:14 | disposition home or self-care (01) ==
PROVIDERS: Emergency Provider Student in an Organized Health Care Education/Training Program; PCP Family Medicine
DX: S61.012A Laceration without foreign body of left thumb without damage to nail, initial encounter (principal); M79.645 Pain in left finger(s); F17.210 Nicotine dependence, cigarettes, uncomplicated; Z23 Encounter for immunization; W55.01XA Bitten by cat, initial encounter; Y93.89 Activity, other specified; Y92.009 Unspecified place in unspecified non-institutional (private) residence as the place of occurrence of the external cause
CPT/HCPCS: 12002; 73120; 90471; 90715; 99283; J0171

== ENCOUNTER 2024-11-19 14:26 | Emergency (ER) | payer MEDICAID, SELFPAY ==
--- OUTSIDE RECORDS SUMMARY | 2010-02-02 12:45 | XMS_ITS | Continuity of Care Document ---
Author Organization [facility] Address [address] [address] Phone Care Team Providers Care Facilities Planner Name Role Phone [facility] Unavailable Ariadna vailable Procedures Procedure Date REVISION OF UPPER EYELID REVISION OF UPPER EYELID REPAIR BROW DEFECT REPAIR BROW DEFECT Advance Directives Directive Yes / No Effective Date File Name No Information Encounters Encounter Description Practice Location Reason(s) For Visit Diagnoses Date Provider Providers Copied on Encounter [facility], [address] [place] [address], [id number], tel:[phone] [facility] No Information [facility]. [address] [place] [address], [id number]. tel:[phone] Referring Provider: Onesimo Montemayor MD, [address] [place] [address], [id number]. tel:[phone] Family History Family Member Type Diagnosis Age At Onset No Information Payers Payer name Insurance type Covered alliance party ID Authoriza tion(s) Blue Cross Blue [facility] PPO [id number] Social History Type Description Quantity Date Captured Comments Sex Female Smoking Status No Information Chief Complaint And Reason For Visit No Information Reason For Referral Reason For Referral No Information History Of Present Illness Encounter Date Complaint History Of Prese nt Illness No Information Functional Status Date Functional Assessmen t No Information Instructions Date Instruction Additional Infor mation No Information Assessments Type Assessment Date No Information Patient Care Teams Name Effective Dates (start - stop) Status Members No Information
--- OUTSIDE RECORDS SUMMARY | 2024-09-20 16:30 | XMS_ITS | Encounter Summary ---
Author Organization [place] [address] Care Team Providers Care Compounder Helper Name Role Phone Unavailable Primary Care Provider Unavailabl e Reason for Referral * Consultation (Routine) - Pending Review Specialty Diagnoses / Procedures Referred By Radha vásquez Referred To Contact Diagnoses Chronic right hip pain Procedures HI OFFICE/OUTPATIENT NEW MODERATE MDM 45 MINUTES Rosie Jules PA [address] [place] [phone] Phone: tel: fax: Referral ID Status Reason Start Date Expiration Date Visits Requested Visits Authorized [id number] Pending Review Specialty Services Required 09/20/2024 09/20/2025 99 99 Reason for Visit * Reason Comments Hip Pain Right and right leg pain Encounter Details Date Type Department Care Team (Late st Contact Info) Description 09/20/2024 4:30 PM EDT Office Visit [facility] [address] [place] [phone] Rosie Jules PA [address] [place] [address] Chronic right hip pain (Primary Dx) Social History Tobacco Use Types Packs/Day Years Used Date Smoking Tobacco: Every Day Cigarettes 0.3 43.7 Started: 1981 Smokeless Tobacco: Never Alcohol Use Standard Drinks/Week Comments Not Currently 73 (1 standard drink = 0.6 oz pu re alcohol) quit drinking 2019 Comments No Sex and Gender Information Value Date Recorded Sex Assigned at Not on file Legal Sex Female 3:48 AM EDT Gender Identity Not on file Sexual Orientation Not on file documented as of this encounter Last Filed Vital Signs Vital Sign Reading Time Taken Comments Blood Pressure 112/64 09/20/2024 4:34 PM EDT Pulse 88 09/20/2024 4:34 PM EDT Temperature 37.4 C (99.3 F) 09/20/2024 4:34 PM EDT Respiratory Rate 12 09/20/2024 4:34 PM EDT Oxygen Saturation 98% 09/20/2024 4:3 4 PM EDT on room air Inhaled Oxygen Concentration - - Weight 52.3 kg (115 lb 3.2 oz) 09/21/19 4:34 PM EDT Height 161.9 cm (5' 3.75 ) 09/20/2024 4 :34 PM EDT Body Mass Index 19.93 09/20/2024 4:34 PM EDT documented in this encounter Progress Notes * Rosie Jules PA - 09/20/2024 4:30 PM EDT Images from the original note were not included. Vitals: 09/20/24 1634 BP: 112/64 BP Location: Left arm Patient Position: Sitting Pulse: 88 Resp: 12 Temp: 99.3 ??F (37.4 ??C) TempSrc: Forehead SpO2: 98% Weight: 115 lb 3.2 oz (52.3 kg) Height: 5' 3.75 (1.619 m) Body mass index is 19.93 kg/m??. SUBJECTIVE: Chief Complaint Patient presents with Hip Pain Right and right leg pain HPI: HPI: Pt with PMH significant for h/o Drug use (meth, THC, cocaine, -IV drug abuse); h/o alcohol abuse (stopped drinking approx 2014); GERD; wheezing/SOB; anxiety; tinnitus; constipation/bloating; chronic neck pain; cigarette smoker; allergies; post menopausal Pt is here for acute visit. She's still having having R leg pain and hip pain, she was seen for this on 08/30/24. Ordered XR and referred her to spine specialists, which she is scheduled for on . She does have a lump on her R hip. She has h/o surgery right hip for right femoral neck fracture; GERD --omeprazole 20 QD. failed zantac. chronic back pain -- robaxin 500 2 tab TID PRN wheezing/SOB -- albuterol PRN. Pt notes she sometimes feels she can't breathe . anxiety -- cymbalta 20 QD, hydroxyzine 25 TID PRN allergies -- claritin 10 PRN bloating/constipation -- probiotics QD tinnitus -- referred to ENT Notes she has hardware in her right hip. XR 02/04/18 confirms hardware. Concerned she may not be able to trudge. Has chronic back and neck pain (h/o fractured vertebrae). 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 Used to see chiropractor, which she felt was helpful. Pt presents with complaints of right hip pain. Seen for this on 08/30. Area Past history of surgery R hip with XR 02/04/18 confirming hardware. Scheduled with mass spectrometry specialist Tuesday09/24/24. Requests referral Review of Systems Constitutional: Negative for chills and fever. Respiratory: Negative for chest tightness and shortness of breath. Cardiovascular: Negative for chest pain. Gastrointestinal: Negative for abdominal pain, constipation, diarrhea, nausea and vomiting. Genitourinary: Negative for dysuria, frequency and urgency. Musculoskeletal: Positive for arthralgias (right hip pain/thigh pain), back pain, joint swelling and myalgias (nocturnal cramping feet and lower legs). Negative for neck pain. Skin: Negative for color change and wound. Neurological: Negative for numbness. Stinging/burning R arm, OBJECTIVE: Physical Exam Vitals and nursing note reviewed. Constitutional: General: She is not in acute distress. Appearance: Normal appearance. HENT: Head: Normocephalic and atraumatic. Musculoskeletal: General: Tenderness (right hip, spine non tender to palpation) present. Normal range of motion. Legs: Comments: Swelling R hip over area of previous incision. spongy texture. Neurological: General: No focal deficit present. Mental Status: She is alert. Motor: No weakness. Gait: Gait normal. Comments: seated straight leg raise negative. Supine straight leg raise positive bilat. No weakness. Normal gait. Assessment & Plan Chronic right hip pain area of swelling could be a limpoma, or could be swelling associated with joint issue. Discussed that mass spectrometry specialist will be handling her back issues. Recommended she see ortho john to discuss heroptions regarding hip pain. Orders: AMB REFERRAL TO ORTHOPEDIC SURGERY documented in this encounter Plan of Treatment Upcoming Encounters Date Type Department Care Team (Late st Contact Info) Description 11/22/2024 8:00 AM EDT Office Visit [address] [phone] Karlie Matthews, SHREE [address] [place] [phone] Scheduled Referrals Name Type Priority Associated Diagnoses Order Schedule AMB REFERRAL TO ORTHOPEDIC SURGERY Outpatient Referral Routine Chronic right hip pain Ordered: 09/20/2024 documented as of this encounter Visit Diagnoses Diagnosis Chronic right hip pain- Primary Pain in joint, pelvic region and thigh documented in this encounter
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
--- OUTSIDE RECORDS SUMMARY | 2024-11-19 14:34 | XMS_ITS | Encounter Summary ---
Author Organization [place] [address] Care Team Providers Care Crossing Guard Name Role Phone Unavailable Primary Care Provider Unavailabl e Encounter Details Date Type Department Care Team (Late st Contact Info) Description 10/03/2024 Orders Only [facility] Physical Therapy [address] [place] [phone] Elissa Lawton, PT Social History Tobacco Use Types Packs/Day Years [...] on file documented as of this encounter Plan of Treatment Upcoming Encounters Date Type Department Care Team (Late st Contact Info) Description 11/22/2024 8:00 AM EDT Office Visit [address] [address] Karlie Matthews APRN [address] [place] [address] [place] [id number] documented as of this encounter Visit Diagnoses Not on filedocumented in this encounter
--- OUTSIDE RECORDS SUMMARY | 2024-11-19 14:34 | XMS_ITS | Encounter Summary ---
Author Organization [place] [address] Care Team Providers Care Hide Paster Name Role Phone Unavailable Primary Care Provider Unavailabl e Reason for Visit * Reason Onset Date Comments Prior Authorization 10/26/2024 Encounter Details Date Type Department Care Team (Late st Contact Info) Description 10/26/2024 Telephone [facility] [address] [place] [address] Brysno Hernandez MD [address] [place] [address] Prior Authorization Social History Tobacco Use Types Packs/Day Years Used Date Smoking Tobacco: Every Day Cigarettes 0.3 43.7 Started: 1979 Smokeless Tobacco: Never Alcohol Use Standard Drinks/Week Comments Not Currently 73 (1 standard drink = 0.6 oz pu re alcohol) quit drinking 2020 Comments No Sex and Gender Information Value Date Recorded Sex Assigned at Not on file Legal Sex Female 3:48 AM EDT Gender Identity Not on file Sexual Orientation Not on file documented as of this encounter Miscellaneous Notes * Telephone Encounter - Jaky Whitt, Clerical Staff - 10/26/2024 11:44 AM EDT Ok, thank you for your help. I will make the appointment notes. * Telephone Encounter - Corin Villanueva RN - 10/26/2024 11:12 AM EDT Attempted to contact patient. Phone number has been disconnected. Emergency contact phone number isthe same number. Unfortunately there is no other way to contact the patient. Patient no showed for 1st PT appointment scheduled on 10/04/24. Patient has not completed lumbar or cervical x-rays that have been ordered. I would place a note in the patient's MRI appointments that they are not approved and no way of contacting patient. Hopefully they would not let the patient proceed with the MRIs. * Telephone Encounter - Jaky Whitt, Clerical Staff - 10/26/2024 10:57 AM EDT The patient is currently scheduled for MRI Cervical and MRI Lumbar studies on 11/16/24. However, she has not yet completed her x-rays or her physical therapy evaluation. We are unable to reach her by phone, as her number is disconnected, and she does not have access [email or web address]. The insurance portal requests that x-rays be submitted along with the clinical notes and conservative care tried. Would you be able to assist in contacting the patient? Thank you, Leonila Whitt [facility] Pre-Apartment House Manager, [employer] Ph. [phone] documented in this encounter Plan of Treatment Upcoming Encounters Date Type Department Care Team (Late st Contact Info) Description 11/22/2024 8:00 AM EDT Office Visit [address] [id number] Karlie Matthews APRN [address] [place] [address] [place] [address] documented as of this encounter Visit Diagnoses Not on filedocumented in this encounter
--- OUTSIDE RECORDS SUMMARY | 2024-11-19 14:34 | XMS_ITS | Clinical Summary ---
Author Organization [facility] Address [address] [place] [phone] Phone Care Team Providers Care Drupal Web Developer Name Role Phone Unavailable Primary Care Provider Unavailabl e Allergies No known active allergies Medications * This document contains information received from the source organization and may not represent a complete record from that organization. lactobacillus rhamnosus, GG, (CULTURELLE) 10 billion cell Oral CapsuleIndicatio ns:Bloating,Othe r constipation 1 PO QD 30 Capsule 2 5 Active multivitamin with minerals Oral Tablet Take 1 Tablet by mouth daily. 30 Tablet 2 5 Active acetaminophen (TYLENOL) 500 mg Oral TabletIndication s:Chronic midline low back pain, unspecified whether sciatica present,Chronic midline posterior neck pain Take 2 Tablets by mouth every 6 hours as needed. 90 Tablet 2 5 Active loratadine (CLARITIN) 10 mg Oral TabletIndication s:Environmental allergies Take 1 Tablet by mouth daily. 30 Tablet 2 5 Active DULoxetine (CYMBALTA) 20 mg Oral Capsule, Delayed Release(E.C.) Take 1 Capsule by mouth daily. 30 Capsule 1 5 Active hydrOXYzine (VISTARIL) 25 mg Oral Capsule Take 1 Capsule by mouth 2 times daily. 60 Capsule 2 5 Active Additional Information Patient not taking.Reason: Other (has not received from pharmacy), Reported on 09/24/2024 lidocaine (LIDODERM) 5 % Top Adhesive Patch, MedicatedIndicat ions:Chronic midline low back pain, unspecified whether sciatica present,Chronic midline posterior neck pain Apply one patch to the skin PRN pain -- leave on skin for 12 hours, then take off skin for 12 hours before applying another patch. 30 Patch 5 Active omeprazole (PRILOSEC OTC) 20 mg Oral Tablet, Delayed Release (E.C.)Indication s:Gastroesophage al reflux disease, unspecified whether esophagitis present 1 po q am 30 min prior to first meal for reflux 30 Tablet 2 5 Active ibuprofen (ADVIL;MOTRIN) 800 mg Oral TabletIndication s:Chronic midline low back pain, unspecified whether sciatica present,Chronic midline posterior neck pain Take 1 Tablet by mouth every 8 hours as needed for Fever or Pain. 90 Tablet 2 5 Active albuterol (PROVENTIL HFA;VENTOLIN HFA) 90 mcg/actuation Inhl HFA Aerosol InhalerIndicatio ns:Wheezing Inhale 2 Puffs into the lungs every 6 hours as needed. for wheezing 1 Each 2 5 Active hydrocortisone 1 % Top CreamIndications :Pruritic rash APPLY TOPICALLY EVERY DAY NEEDED FOR ITCHY TO RASH 28 g 1 5 Active atomoxetine (STRATTERA) 40 mg Oral Capsule Take 1 Capsule by mouth daily for 30 days. 30 Capsule 5 025 Active Problems Patient Care Coordination No te Formatting of this note migh t be different from the original. [facility] - Bryson Hernandez MD Interventional Pain Protocol: Frank report completed (EVERY 3 MONTHS) ( 11/19/24 ) Pharmacy: [place] [address] - [id number] [facility] [phone] Sp[facility] Center additional info (Transportation, WC, Compound, No Show, PPW) Problem Noted Date Diagnosed Date ANANDA (generalized anxiety disorder) 08/24/2024 Overview (08/24/2024): Cymbalta 20mg Primary insomnia 08/24/2024 Overview (08/24/2024): melatonin Other constipation 08/23/2024 Assessment & Plan (08/23/2024 3:11 PM EDT): Orders: lactobacillus rhamnosus, GG, (CULTURELLE) 10 billion cell Oral Capsule; 1 PO QD Bloating 08/23/2024 Assessment & Plan (08/23/2024 3:11 PM EDT): Orders: lactobacillus rhamnosus, GG, (CULTURELLE) 10 billion cell Oral Capsule; 1 PO QD Gastroesophageal reflux disease 08/23/2024 Overview (09/17/2024): symptoms not controlled with zantac BID Assessment & Plan (09/17/2024 5:08 PM EDT): stop famotidine and switch back to daily omeprazole PRN. Orders: omeprazole (PRILOSEC OTC) 20 mg Oral Tablet, Delayed Release (E.C.); 1 po q am 30 min prior to first meal for reflux Assessment & Plan (08/23/2024 3:11 PM EDT): Will start 2 weeks of PPI. Discussed how to take medication. After 2 weeks of PPI we will plan to taper to famotidine PRN. If symptoms worsen or do not improve, or symptoms are not controlled on famotidine, pt is to drop me a note and we will determine next steps. Orders: omeprazole (PRILOSEC OTC) 20 mg Oral Tablet, Delayed Release (E.C.); 1 po q am 30 min prior to first meal x 2 weeks for heartburn, then taper to famotidine PRN famotidine (PEPCID) 40 mg Oral Tablet; take 1 tablet BID as needed for heartburn Chronic midline low back pain 08/23/2024 Assessment & Plan (09/17/2024 5:08 PM EDT): ibuprofen 800 administered in office. Sending RF. Orders: ibuprofen (ADVIL;MOTRIN) tablet 800 mg ibuprofen (ADVIL;MOTRIN) 800 mg Oral Tablet; Take 1 Tablet by mouth every 8 hours as needed for Fever or Pain. Assessment & Plan (09/03/2024 2:41 PM EDT): Orders: XR THORACIC SPINE AP AND LATERAL; Future XR LUMBAR SPINE AP AND LATERAL; Future AMB REFERRAL TO SPINE CENTER Assessment & Plan (08/23/2024 3:11 PM EDT): Pt requests to go to chiropractor. Gave her information to call and schedule. Orders: acetaminophen (TYLENOL) 500 mg Oral Tablet; Take 2 Tablets by mouth every 6 hours as needed. AMB REFERRAL TO [facility] Chronic midline posterior neck pain 08/23/2024 Assessment & Plan (09/17/2024 5:08 PM EDT): Orders: ibuprofen (ADVIL;MOTRIN) tablet 800 mg ibuprofen (ADVIL;MOTRIN) 800 mg Oral Tablet; Take 1 Tablet by mouth every 8 hours as needed for Fever or Pain. Assessment & Plan (09/03/2024 2:41 PM EDT): Orders: XR CERVICAL SPINE AP LATERAL AND ODONTOID; Future XR THORACIC SPINE AP AND LATERAL; Future AMB REFERRAL TO SPINE CENTER Assessment & Plan (08/23/2024 3:11 PM EDT): Orders: acetaminophen (TYLENOL) 500 mg Oral Tablet; Take 2 Tablets by mouth every 6 hours as needed. AMB REFERRAL TO [facility]KELET[facility]IC[facility] Cigarette nicotine dependence without complicati on 08/23/2024 Assessment & Plan (09/17/2024 5:08 PM EDT): Orders: LIPID SCREEN; Future Assessment & Plan (08/23/2024 3:11 PM EDT): Tinnitus of both ears 08/23/2024 Assessment & Plan (09/17/2024 5:08 PM EDT): reminded her she can call and schedule with ENT at her convenience Assessment & Plan (08/23/2024 3:11 PM EDT): Not likely to be medication ADR. Will refer to ENT for further work up and recommendations per pt request. Orders: AMB REFERRAL TO ENT Environmental allergies 08/23/2024 Assessment & Plan (08/23/2024 3:11 PM EDT): Orders: loratadine (CLARITIN) 10 mg Oral Tablet; Take 1 Tablet by mouth daily. History of female sterilization 08/23/2024 Assessment & Plan (08/23/2024 3:11 PM EDT): Post-menopausal 08/23/2024 Assessment & Plan (08/23/2024 3:11 PM EDT): Nondependent mixed drug abuse 08/23/2024 Assessment & Plan (08/23/2024 3:11 PM EDT): Discussed risk vs benefit of starting vivitrol--how medication works, pros and cons, common side effects and contraindications. Pt will think about it and let us know if she wishes to try the medication. If so, will wait until she gets through [facility] and then she will take oral naltrexone first to ensure no anaphylaxis. If tolerates this well, pt will schedule first dose of Vivitrol with nurse. She does not have a history of positive Hepatitis C. She does not have recent labs, so we will need to draw her labs before initiating medication, and pt is aware she will need follow up labs within 3 months of starting medication to monitor LFTs. Pt voices understanding. Pt will f/u if any questions or concerns and notify us if she wants to try medication. History of alcohol abuse 08/23/2024 Assessment & Plan (08/23/2024 3:11 PM EDT): Encounters * This document contains information received from the source organization and may not represent a complete record from that organization. Date Type Department Care Team Description 10/26/2024 Telephone [facility] [address] [place] [address] Bryson Hernandez MD Prior Authorization 10/03/2024 Orders Only [facility] [address] [place] [address] [place] [address] Elissa Lawton, PT 10/01/2024 Refill [facility] [address] [place] [address] Rosie Jules PA Medication Refill 09/24/2024 9:20 AM EDT Office Visit [facility] [address] [address] Bryson Hernandez MD Chronic pain syndrome (Primary Dx); Myofascial pain; Chronic midline low back pain, unspecified whether sciatica present; DDD (degenerative disc disease), cervical 09/20/2024 4:30 PM EDT Office Visit [facility] [address] [place] [address] Rosie Jules PA Chronic right hip pain (Primary Dx) 09/20/2024 Refill [facility] [address] [place] [address] Rosie Jules PA Medication Refill 09/20/2024 Results Follow-Up [facility] [address] [place] [address] Rosie Jules PA USABILITY STRATEGIST CYTOLOGY REQUEST (PAP ONLY), HPV HIGH RISK WITH REFLEX TO GENOTYPE, GC CHLAMYDIA THIN PREP, TRICHOMONAS VAGINALIS BY TMA (PAP PANEL) 09/17/2024 2:30 PM EDT Office Visit [facility] [address] [place] [address] Rosie Jules PA Annual wellness visit (Primary Dx); Chronic midline low back pain, unspecified whether sciatica present; Chronic midline posterior neck pain; Gastroesophageal reflux disease, unspecified whether esophagitis present; Pap smear for cervical cancer screening; Cigarette nicotine dependence without complication; Oral candidiasis; Unprotected sex; Tinnitus of both ears 09/10/2024 Refill [facility] [address] [place] [address] Rosie Jules PA Medication Refill (Robaxin ) 09/06/2024 Telephone [facility] [address] [place] [address] Rosie Jules PA Hip Pain (Right ) 09/05/2024 2:11 PM EDT - 09/05/2024 4:26 PM EDT Emergency [facility] [address], [facility] Ochoa Frias MD Atypical chest pain (Primary Dx) Discharge Disposition: Home or Self Care 09/05/2024 Travel 09/05/2024 Telephone [facility] [address] [place] [address] Rosie Jules PA Chest Pain 09/05/2024 Telephone [facility] [address] [place] [address] Rosie Jules PA Labs Only 09/04/2024 10:15 AM EDT Clinical Support [facility] [address] [place] [address] Juaquin Carmona LPN Chest pain at rest (Primary Dx) 09/03/2024 Telephone [facility] [address] [place] [address] Rosie Jules PA Medication Change 09/03/2024 Telephone [facility] [address] [address] Celeste Leblanc, House Painter New Patient 08/30/2024 8:00 AM EDT Office Visit [facility] [address] [place] [address] Rosie Jules PA Right leg pain (Primary Dx); Chronic midline low back pain, unspecified whether sciatica present; Chronic midline posterior neck pain; Numbness and tingling of right upper extremity 08/23/2024 1:30 PM EDT Office Visit [facility] [address] [place] [address] Rosie Jules PA Nondependent mixed drug abuse (HCC) (Primary Dx); History of alcohol abuse; Bloating; Other constipation; Gastroesophageal reflux disease, unspecified whether esophagitis present; Chronic midline low back pain, unspecified whether sciatica present; Chronic midline posterior neck pain; Cigarette nicotine dependence without complication; Tinnitus of both ears; Pruritic rash; Environmental allergies; History of female sterilization; Post-menopausal; Wheezing from Last 3 Months Surgical History Surgery Date Site/Laterality Comments SECTION 2000 CLAVICLE SURGERY 2018 HIP SURGERY Right 2020 Medical History Medical History Date Comments Heartburn Methamphetamine abuse (HCC) Other seasonal allergic rhinitis Family History Medical History Relation Name Comments Arthritis Maternal Aunt Asthma Maternal Aunt Cancer Maternal Aunt Depression Maternal Aunt Mental Illness Maternal Aunt Stroke Maternal Aunt Substance Abuse Maternal Aunt Heart Disease Maternal Grandfather Stroke Maternal Grandfather Arthritis Maternal Grandmother Diabetes Maternal Grandmother Substance Abuse Maternal Grandmother Arthritis Mother Cancer Mother pancreatic Diabetes Paternal Aunt Mental Illness Paternal Aunt Diabetes Paternal Grandmother Heart Disease Paternal Grandmother Stroke Paternal Uncle Depression Sister 1 Irene Hearing Loss Sister 1 Irene Cancer Sister 2 Columba rectal cancer Depression Sister 3 Elizabeth Relation Name Status Comments Maternal Aunt Maternal Grandfather Maternal Grandmother Mother Paternal Aunt Paternal Grandmother Paternal Uncle Sister 1 Irene Alive Sister 2 Columba Alive Sister 3 Elizabeth Alive Social History Tobacco Use Types Packs/Day Years Used Date Smoking Tobacco: Every Day Cigarettes 0.3 43.7 Started: 1981 Smokeless Tobacco: Never Tobacco Cessation:Ready to Q uit: Not Asked; Counseling Given: Not Answered Alcohol Use Standard Drinks/Week Comments Not Currently 73 (1 standard drink = 0.6 oz pu re alcohol) quit drinking 2019 Comments No Sex and Gender Information Value Date Recorded Sex Assigned at Not on file Legal Sex Female 3:48 AM EDT Gender Identity Not on file Sexual Orientation Not on file Obstetrics History Last Filed Vital Signs Vital Sign Reading Time Taken Comments Blood Pressure 112/64 09/20/2024 4:34 PM EDT Pulse 95 09/24/2024 9:25 AM EDT Temperature 37.4 C (99.3 F) 09/20/2024 4:34 PM EDT Respiratory Rate 12 09/20/2024 4:34 PM EDT Oxygen Saturation 96% 09/24/2024 9:25 AM EDT Inhaled Oxygen Concentration - - Weight 52.6 kg (116 lb) 09/24/2024 9:25 AM EDT Height 161.9 cm (5' 3.75 ) 09/20/2024 4:34 PM ED T Body Mass Index 20.07 09/20/2024 4:34 PM EDT Plan of Treatment Upcoming Encounters Date Type Department Care Team (Late st Contact Info) Description 11/22/2024 8:00 AM EDT Office Visit [facility] [address] [place] [address] Karlie Matthews, CUT OFF MACHINE HELPER [address] [facility] [place] [address] Health Maintenance Due Date Last Done Comments DTaP/TDaP/Td (1 - Tdap) 1986 Hepatitis B Vaccine (1 of 3 - 19+ 3-dose series) 1986 Pneumococcal Vaccine 50+ (1 of 2 - PCV) 1986 Breast Cancer Screening 2007 Cologuard 2012 Colon Cancer Screening 2012 Colonoscopy 2012 FIT 2012 Sigmoidoscopy 2012 Virtual Colonography 2012 Zoster (1 of 2) 2017 COVID-19 Vaccine (2 - 2024-2 6 season) 2024 09/11/2020 Influenza Vaccine (#1) 2024 Annual Wellness Exam 09/17/2025 09/17/2024 Pap Smear 09/18/2027 09/17/2024 Cervical Cancer Screening 09/17/2029 HPV/Pap Cotest 09/17/2029 09/17/2024 Meningococcal B Vaccine Aged Out No l onger eligible based on patient's age to complete this topic Procedures Procedure Name Priority Date/Time Associated Diagnosis Comments USABILITY STRATEGIST CYTOLOGY REQUEST (PAP ONLY) Routine 09/17/2024 4:16 PM EDT Pap smear for cervical cancer screening [facility] USABILITY STRATEGIST CYTOLOGY ORDER Routine 09/17/2024 4:16 PM EDT Pap smear for cervical cancer screening TRICHOMONAS VAGINALIS BY TMA (PAP PANEL) Routine 09/17/2024 4:16 PM EDT Pap smear for cervical cancer screening GC CHLAMYDIA THIN PREP Routine 09/17/2024 4:16 PM EDT Pap smear for cervical cancer screening HPV HIGH RISK WITH REFLEX TO GENOTYPE Routine 09/17/2024 4:16 PM EDT Pap smear for cervical cancer screening XR CHEST AP PORTABLE STAT 09/05/2024 3:16 PM EDT MAGNESIUM LEVEL STAT 09/05/2024 3:10 PM EDT D-DIMER STAT 09/05/2024 3:10 PM EDT TROPONIN-T HIGH SENSITIVITY BASELINE W/ REFLEX STAT 09/05/2024 3:10 PM EDT BASIC METABOLIC PANEL STAT 09/05/2024 3:10 PM EDT CBC WITH DIFF STAT 09/05/2024 3:10 PM EDT EK EKG 12 LEAD STAT 09/05/2024 1:47 PM EDT from Last 3 Months Results * USABILITY STRATEGIST CYTOLOGY REQUEST (PAP ONLY) (09/17/2024 4:16 PM EDT) CASE REPORT Gynecologic Cytology Report Case: [id number] Authorizing Provider: Rosie Jules PA Collected: 09/17/2024 1616 Ordering Location: [facility] Received: 09/17/2024 1616 First Screen: Eric Mae CT Specimen: LIQUID-BASED PAP - CERVICAL/ENDOCERV ICAL, Cervix, Endocervical 09/19/2024 2:02 PM EDT [facility] PAP FINAL DIAGNOSIS Negative for intraepithelial lesion or malignancy 09/19/2024 2:02 PM EDT [facility] at 1402 EDT MICROSCOPIC DESCRIPTION Microscopic examination is performed and the findings corroborate the diagnosis. 09/19/2024 2:02 PM EDT [facility] PAP SMEAR ADEQUACY Satisfactory for evaluation 09/19/2024 2:02 PM EDT [facility] ENDOCERVICAL T-ZONE Transformation zone present 09/19/2024 2:02 PM EDT [facility] EMBEDDED IMAGES 2:02 PM EDT [facility] PAP DISCLAIMER The Pap Smear is a screening test that aids in the detection of cervical cancer and cancer precursors. Both false positive and false negative results can occur. The test should be used at regular intervals, and positive results should be confirmed before definitive therapy. Processed using the NomacorcPrep Order Editor Automated cytology screening device ([employer]). 09/19/2024 2:02 PM EDT [facility] PAP OTHER FINDINGS Many acute inflammatory cells noted. 09/19/2024 2:02 PM EDT [facility] Thin Prep ENDOCERVICAL STRUCTURE / Unknown 09/17/2024 4:16 PM EDT 09/17/2024 4:16 PM EDT Rosie TIPTON CYTOLOGY ORDERABLES Shellie l Result [facility] [address] [place] [address] * TRICHOMONAS VAGINALIS BY TMA (PAP PANEL) (09/17/2024 4:16 PM EDT) Trichomonas vaginalis by TMA Not Detected Not Detected 09/18/2024 2:17 PM EDT [facility] [employer] Thin Prep PART OF UTERINE CERVIX / Unknown 09/17/2024 4:16 PM EDT 09/17/2024 4:16 PM EDT Narrative [facility] [employer] - 09/18/2024 2:17 PM EDT Test methodology is certified prosthetist/orthotist mediated amplification (TMA) using the Aptima Trichomonas vaginalis assay from [employer]. A negative result does not completely rule out a Trichomonas vaginalis infection due to potential inhibitors or levels present below the limit of detection of this assay. Results are dependent on proper collection and transport of specimen. This test is indicated for medical purposes only and should not be used for legal or forensic purposes. Rosie TIPTON MICROBIOLOGY - GENERAL O RDERABLES Final Result Performing Organization Address City/[facility]/ZIP Co de Phone Number [facility] [employer] [facility] [address] , [place] [address] * GC CHLAMYDIA THIN PREP (09/17/2024 4:16 PM EDT) Chlamydia trachomatis Not Detected Not Detected 09/18/2024 2:02 PM EDT PREFERRED LAB [facility], [facility] Neisseria gonorrhoeae Not Detected Not Detected 09/18/2024 2:02 PM EDT [facility] [employer], [facility] Thin Prep PART OF UTERINE CERVIX / Unknown 09/17/2024 4:16 PM EDT 09/17/2024 4:16 PM EDT Narrative [facility]REFERRED [employer] [facility] - 09/18/2024 2:02 PM EDT Testing methodology is certified prosthetist/orthotist mediated amplification (TMA) using the Aptima Combo 2 assay from [employer]. A negative result does not completely rule out a Chlamydia trachomatis or Neisseria gonorrhoeae infection due to potential inhibitors or levels present below the limit of detection by this assay. Results are dependent on proper collection and transport of specimen. This test is indicated for medical purposes only and should not be used for legal or forensic purposes. The performance characteristics of this assay were validated by the testing laboratory. This assay is FDA cleared to test the following specimens: clinician-collected endocervical, vaginal, male urethral swab specimens, rectal swabs, and throat/pharyngeal swabs; patient collected vaginal specimens within a clinic setting; Thin Prep Specimens in [employer] Solution; and first-stream, unpreserved male and female urine specimens. Detailed methodology is available upon request. Rosie TIPTON MICROBIOLOGY - GENERAL O RDERABLES Final Result Performing Organization Address [facility] Co de Phone Number [facility] [address] , [address] [place], [place] [id number] * HPV HIGH RISK WITH REFLEX TO GENOTYPE (09/17/2024 4:16 PM EDT) HPV HR Reflex Not Detected Not Detected 025 1:52 PM EDT [facility] [employer] Thin Prep PART OF UTERINE CERVIX / Unknown 09/17/2024 4:16 PM EDT 09/17/2024 4:16 PM EDT Narrative [facility]REFERRED [employer] - 09/18/2024 1:52 PM EDT This test was performed using the FDA Approved APTIMA HPV mRNA assay which detects E6/E7 messenger RNA of High Risk HPV types (16, 18, 31, 33, 35, 39, 45, 51, 52, 56, 58, 59, 66, and 68). This assay is intended for use in women 21 years or older with ASC-US cervical cytology or women 30 years or older. This assay is not intended to substitute for regular cervical cytology screening. Detection of HPV using the APTIMA HPV Assay does not differentiate HPV types and cannot evaluate persistence of any one type. The use of this assay has not been evaluated for the management of HPV vaccinated women, women with prior ablative or excisional therapy, hysterectomy, or who are . Sensitivities may be affected by collection methods, stage of infection, and the presence of interfering substances. Results of this assay should be interpreted in conjunction with other available laboratory and clinical data. Rosie TIPTON MICROBIOLOGY - GENERAL O RDERABLES Final Result [facility] [employer] [address] , [address] [place] [id number] * XR CHEST AP PORTABLE (09/05/2024 3:16 PM EDT) Anatomical Region Laterality Modality Chest Radiographic Susan ging 09/05/2024 3:16 PM EDT Impressions 09/05/2024 3:20 PM EDT No acute finding. - Note: Radiology results need to be interpreted within a comprehensive clinical context. If you have questions about the radiology report, please contact the office of the ordering clinician. Narrative 09/05/2024 3:20 PM EDT XR CHEST AP PORTABLE, 09/05/2024 3:16 PM CLINICAL HISTORY: -chest pain COMPARISON: None. PROCEDURE COMMENTS: AP portable technique. FINDINGS: Support devices: No visible support devices. Heart and mediastinal contours within normal limits for technique. No active failure, pneumonia, or visible effusion. No visible pneumothorax. They all rib deformities of upper LEFT ribs probably from prior trauma Procedure Note Jung Pennington MD - 09/05/2024 XR CHEST AP PORTABLE, 09/05/2024 3:16 PM CLINICAL HISTORY: -chest pain COMPARISON: None. PROCEDURE COMMENTS: AP portable technique. FINDINGS: Support devices: No visible support devices. Heart and mediastinal contours within normal limits for technique. Noactive failure, pneumonia, or visible effusion. No visible pneumothorax. Theyall rib deformities of upper LEFT ribs probably from prior trauma IMPRESSION: No acute finding. - Note: Radiology results need to be interpreted within a comprehensiveclinical context. If you have questions about the radiology report, please contactthe office of the ordering clinician. Eric Alvarez APRN IMG DIAGNOSTIC IMAGING O RDERABLES Final Result * TROPONIN-T HIGH SENSITIVITY BASELINE W/ REFLEX (09/05/2024 3:10 PM EDT) Pathologist [facility] [id number] <14 ng/L 09/05/2024 3:41 PM EDT [facility] Blood VENOUS BLOOD / Unknown Venipuncture / Unknown 09/05/2024 3:10 PM EDT 09/05/2024 3:19 PM EDT Narrative [facility] - 09/05/2024 3:41 PM EDT Ingestion of bonifacio doses of biotin (>5 mg/day) taken within 8 hours of drawing blood sample can interfere with this immunoassay test. Eric Alvarez APRN CHEMISTRY ORDERABLES Fin al Result [facility] [address] [place] [address] * D-DIMER (09/05/2024 3:10 PM EDT) Pathologist [facility] D-Dimer <215 <=500 ng/mL FEU 09/05/2024 3:42 PM EDT [facility] [employer] Comment:This is an automated latex enhanced immunoassay for the quantitative determination of D-Dimer that may be used, in conjunction with a clinical pretest probability assessment, to exclude venous thromboembolism in patients suspected of deep venous thrombosis (DVT) and pulmonary embolism (PE). The cutoff for exclusion of DVT and PE is 500 ng/mL Fibrinogen Equivalent Units (FEU). Elevated D-Dimer levels may be associated with PE, DVT, disseminated intravascular coagulation, recent surgery, recent bleeding, , malignancy, and inflammation. Blood VENOUS BLOOD / Unknown Venipuncture / Unknown 09/05/2024 3:10 PM EDT 09/05/2024 3:23 PM EDT [facility] PF [facility] - 09/05/2024 3:42 PM EDT For patients between the ages of 50 - 75, an age-adjusted D-Dimer cut-off in combination with non-high clinical probability may be considered for the exclusion of venous thromboembolism (calculation = age x 10). FAUSTO Rodríguez, et al. Tamara Broomcorn Grader Med. 2017;166(5):361-363 ROSA Sampson, et al. Tamara [employer]room[employer] Gr[employer] Med. 2015;(163):701-711. Elkin Lehman et al. APRIL. 2014;(11):4096-5167. Eric Alvarez APRN HEMATOLOGY ORDERABLES Fi nal Result [facility] [employer] [address] , [place] [address] * (ABNORMAL) CBC WITH DIFF (09/05/2024 3:10 PM EDT) WBC 7.3 3.7 - 10.3 x10(3)/mcL 09/05/2024 3:32 PM EDT [facility] Comment:This is an appended report. These results have been appended to a previously preliminary verified report. RBC 4.05 3.90 - 5.20 x10(6)/mcL 09/05/2024 3:32 PM EDT [facility] Hgb 12.6 11.2 - 15.7 g/dL 09/05/2024 3:32 PM EDT [facility] Hct 39.3 34.0 - 45.0 % 09/05/2024 3:32 PM EDT [facility] MCV 97.0 80.0 - 100.0 fL 09/05/2024 3:32 PM EDT [facility] MCH 31.1 26.0 - 34.0 pg 09/05/2024 3:32 PM EDT [facility] MCHC 32.1 30.7 - 35.5 g/dL 09/05/2024 3:32 PM EDT [facility] RDW 13.3 <=14.9 % 09/05/2024 3:32 PM EDT [facility] Platelet 373(H) 155 - 369 x10(3)/mcL 09/05/2024 3:32 PM EDT [facility] MPV 8.5(L) 8.8 - 12.5 fL 09/05/2024 3:32 PM EDT [facility] Neut Percent 53.1 % 09/05/2024 3:32 PM EDT [facility] Comment:Neutrophils equals s egs plus bands Imm Gran% 0.3 % 09/05/2024 3:32 PM EDT [facility] Comment:Automated count of m etamyelocytes, myelocytes and promyelocytes. Lymph Percent 33.8 % 09/05/2024 3:32 PM EDT [facility] Wayne Percent 8.9 % 09/05/2024 3:32 PM EDT [facility] Eos Percent 3.1 % 09/05/2024 3:32 PM EDT [facility] Baso Percent 0.8 % 09/05/2024 3:32 PM EDT [facility] Neut # 3.9 1.6 - 6.1 x10(3)/mcL 09/05/2024 3:32 PM EDT [facility] Comment:Neutrophils equals s egs plus bands IMMGRAN# 0.0 0.0 - 0.1 x10(3)/mcL 09/05/2024 3:32 PM EDT [facility] Comment:Automated count of m etamyelocytes, myelocytes and promyelocytes. An absolute IG <0.1 is reported as 0.0. Lymph # 2.5 1.2 - 3.9 x10(3)/mcL 09/05/2024 3:32 PM EDT [facility] Wayne # 0.7 0.3 - 0.9 x10(3)/mcL 09/05/2024 3:32 PM EDT [facility] Eos# 0.2 0.0 - 0.5 x10(3)/mcL 09/05/2024 3:32 PM EDT [facility] Baso # 0.1 0.0 - 0.1 x10(3)/mcL 09/05/2024 3:32 PM EDT [facility] Blood VENOUS BLOOD / Unknown Venipuncture / Unknown 09/05/2024 3:10 PM EDT 09/05/2024 3:28 PM EDT Eric Alvarez CUT OFF MACHINE HELPER HEMATOLOGY ORDERABLES Fi nal Result Performing Organization Address [facility] Co de Phone Number [address] [address] * (ABNORMAL) MAGNESIUM LEVEL (09/05/2024 3:10 PM EDT) Pathologist [facility] Magnesium 2.5(H) 1.6 - 2.4 mg/dL 09/05/2024 3:38 PM EDT [facility] Blood VENOUS BLOOD / Unknown Venipuncture / Unknown 09/05/2024 3:10 PM EDT 09/05/2024 3:19 PM EDT Eric Alvarez CUT OFF MACHINE HELPER CHEMISTRY ORDERABLES Fin al Result Performing Organization Address City/[facility]/ZIP Co de Phone Number [address] [phone] * (ABNORMAL) BASIC METABOLIC PANEL (09/05/2024 3:10 PM EDT) Sodium 139 136 - 145 mmol/L 09/05/2024 3:38 PM EDT [facility] Potassium 3.8 3.5 - 5.0 mmol/L 09/05/2024 3:38 PM EDT [facility] Chloride 102 98 - 107 mmol/L 09/05/2024 3:38 PM EDT [facility] Total CO2 21(L) 22 - 29 mmol/L 09/05/2024 3:38 PM EDT [facility] Anion Gap 16 7 - 16 mmol/L 09/05/2024 3:38 PM EDT [facility] Calcium 9.7 8.6 - 10.4 mg/dL 09/05/2024 3:38 PM EDT [facility] Glucose Lvl 94 70 - 99 mg/dL 09/05/2024 3:38 PM EDT [facility] BUN 14 6 - 20 mg/dL 09/05/2024 3:38 PM EDT [facility] Creatinine 0.73 0.51 - 1.30 mg/dL 09/05/2024 3:38 PM EDT [facility] eGFR (CKD-EPIcr 2020) 95 >=60 mL/min/1.7 3 m2 09/05/2024 3:38 PM EDT [facility] Comment:Estimated GFR was ca lculated using the CKD-EPIcr (2020) equation refit without race. The equation is recommended by the National Kidney Foundation - [place] [employer] of Nephrology Task Force. Blood VENOUS BLOOD / Unknown Venipuncture / Unknown 09/05/2024 3:10 PM EDT 09/05/2024 3:19 PM EDT us Eric Alvarez CUT OFF MACHINE HELPER CHEMISTRY ORDERABLES Fin al Result [facility] [address] [place] [id number] * EK EKG 12 LEAD (09/05/2024 1:47 PM EDT) Anatomical Region Laterality Modality Electrocardiogra phy 09/05/2024 1:50 PM EDT Impressions 09/05/2024 5:[address] [facility] Test Date: 2024-09-05 Pat Name: JAUQUIN WINTER Department: DEPID Room: Gender: Female Seat Cover Installer: Carlo : 1965 Requested By: [facility] Order Number: [id number] Reading MD: Sukh Singh MD Measurements Intervals Lamy Rate: 82 P: 80 MN: 137 QRS: 83 QRSD: 74 T: 73 QT: 345 QTc: 405 Interpretive Statements SINUS RHYTHM NORMAL EKG Electronically Signed On 09-05-2024 17:11:39 EDT by Sukh Singh MD Narrative Procedure Note Sukh Singh MD - 09/05/[address] Test Date: 2024-09-05 Pat Name: JUAQUIN WINTER Department: DEPID Room: Gender: Female Seat Cover Installer: : 1965 Requested By: [facility] Order Number: [id number] Reading MD: Sukh Singh MD Measurements Intervals Lamy Rate: 82 P: 80 MN: 137 QRS: 83 QRSD: 74 T: 73 QT: 345 QTc: 405 Interpretive Statements SINUS RHYTHM NORMAL EKG Electronically Signed On 09-05-2024 17:11:39 EDT by Sukh Singh MD us Ochoa Frias MD IMG ECG ORDERABLES F inal Result from Last 3 Months Insurance [id number] [place] [id number] [facility] [address] [place] [address] MDR
--- OUTSIDE RECORDS SUMMARY | 2024-11-19 14:34 | XMS_ITS | Encounter Summary ---
Author Organization [facility] [place] [address] Care Team Providers Care Stock Drier Tender Name Role Phone Unavailable Primary Care Provider Unavailabl e Encounter Details Date Type Department Care Team (Late Contact Info) Description 09/20/2024 Results Follow-Up [facility] [address] [place] [address] Rosie Jules PA [address] [place], [place] [phone] PAPER BOX MAKER CYTOLOGY REQUEST (PAP ONLY), HPV HIGH RISK WITH REFLEX TO GENOTYPE, GC CHLAMYDIA THIN PREP, TRICHOMONAS VAGINALIS BY TMA (PAP PANEL) Social History Tobacco Use Types Packs/Day Years [...] Description 11/22/2024 8:00 AM EDT Office Visit [address] [address] Karlie Matthews APRN [address] [place] [phone] documented as of this encounter Visit Diagnoses Not on filedocumented in this encounter
--- OUTSIDE RECORDS SUMMARY | 2024-11-19 14:34 | XMS_ITS | Encounter Summary ---
Author Organization [place] [address] Care Team Providers Care Middle School Music Teacher Name Role Phone Unavailable Primary Care Provider Unavailabl e Reason for Visit * Reason Onset Date Comments Medication Refill 09/20/2024 Encounter Details Date Type Department Care Team (Late st Contact Info) Description 09/20/2024 Refill [facility] [address] [place] [address] Rosie Jules PA [address] [place] [address] Medication Refill Social History Tobacco Use Types Packs/Day Years [...] on file documented as of this encounter Ordered Prescriptions Prescription Sig Dispense Quantity Refills Last Filled Start Date End Date albuterol (PROVENTIL HFA;VENTOLIN HFA) 90 mcg/actuation Inhl HFA Aerosol InhalerIndications :Wheezing Inhale 2 Puffs into the lungs every 6 hours as needed. for wheezing 1 Each 2 09/20/2024 documented in this encounter Miscellaneous Notes * Telephone Encounter - Zaida Carmona LPN - 09/20/2024 4:24 PM EDT Patient is requesting a refill of albuteral inhaler. May medication be refilled? documented in this encounter Plan of Treatment Upcoming Encounters Date Type Department Care Team (Late st Contact Info) Description 11/22/2024 8:00 AM EDT Office Visit [address] [address] Karlie Matthews APRN [address] [place], [place] [phone] documented as of this encounter Visit Diagnoses Diagnosis Wheezing documented in this encounter Discontinued Medications Medication Sig Discontinue Reason Start Date End Da te albuterol (PROVENTIL HFA;VENTOLIN HFA) 90 mcg/actuation Inhl HFA Aerosol InhalerIndications:Whee zing Inhale 2 Puffs into the lungs every 6 hours as needed. for wheezing Reorder 09/20/2024 documented as of this encounter
--- OUTSIDE RECORDS SUMMARY | 2024-11-19 14:34 | XMS_ITS | Clinical Summary ---
Author Organization [facility] Address [address], [address] [place] [address] Care Team Providers Care Manufacturing Design Engineer Name Role Phone Unavailable Primary Care Provider Unavailabl e Allergies No known active allergies Medications traMADol (ULTRAM) 50 MG tablet Take 1 tablet by mouth every 6 hours as needed for Pain for 10 doses. 10 tablet 0 06/15/2012 Active Immunizations Immunization Administration Dates Next Due TDaP, ADACEL (age 10y-64y), BOOSTRIX (age 10y+), IM, 0.5mL 06/15/2012 Social History Tobacco Use Types Packs/Day Years Used Date Smoking Tobacco: Every Day Cigarettes Comments No Sex and Gender Information Value Date Recorded Sex Assigned at Not on file Legal Sex Female 9:36 PM EST Gender Identity Not on file Sexual Orientation Not on file Last Filed Vital Signs Vital Sign Reading Time Taken Comments Blood Pressure 117/82 06/15/2012 2:16 AM EDT Pulse 90 06/15/2012 2:16 AM EDT Temperature 37.1 C (98.7 F) 06/15/2012 2:16 AM EDT Respiratory Rate 14 06/15/2012 2:16 AM EDT Oxygen Saturation 99% 06/15/2012 2:16 AM EDT Inhaled Oxygen Concentration - - Weight - - Height - - Body Mass Index - - Plan of Treatment Not on file
--- OUTSIDE RECORDS SUMMARY | 2024-11-19 14:34 | XMS_ITS | Encounter Summary ---
Author Organization [place] [address] Care Team Providers Care Manager Market Development Name Role Phone Unavailable Primary Care Provider Unavailabl e Reason for Visit * Reason Comments Medication Refill Encounter Details Date Type Department Care Team (Late Contact Info) Description 10/01/2024 Refill [facility] [address] [place] [address] Rosie Jules PA [address] [place] [address] Medication Refill Social History Tobacco Use Types [...] Refills Last Filled Start Date End Date hydrocortisone 1 % Top CreamIndications:P ruritic rash APPLY TOPICALLY EVERY DAY NEEDED FOR ITCHY TO RASH 28 g 1 10/01/2024 documented in this encounter Miscellaneous Notes * Telephone Encounter - Zaida Carmona LPN - 10/10/2024 8:21 AM EDT Called the number on file for patient has been disconnected. documented in this encounter Plan of Treatment Upcoming Encounters Date Type Department Care Team (Late st Contact Info) Description 11/22/2024 8:00 AM EDT Office Visit [place] [phone] [place] [address] Karlie Matthews, SHREE [address] [place] [address] [place] [phone] documented as of this encounter Visit Diagnoses Diagnosis Pruritic rash Prurigo documented in this encounter Discontinued Medications Medication Sig Discontinue Reason Start Date End Da te hydrocortisone 1 % Top CreamIndications:Prurit ic rash Apply topically 4 times daily as needed. for itchy rash 08/23/2024 10/01/2024 documented as of this encounter
[2024-11-19 14:36] VITALS: BP 145/88; PULSE 98; RESP 16; TEMP 36.9; O2SAT 98; BMI 19.1
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
[2024-11-19] MEDS: IBUPROFEN 600 MG TABLET PO (15:10)
[2024-11-19 15:11] VITALS: BP 148/87; PULSE 85; O2SAT 98
[2024-11-19 15:30] VITALS: BP 142/92; PULSE 73; O2SAT 97
[2024-11-19 16:01] VITALS: BP 136/79; PULSE 78; O2SAT 98
[2024-11-19 17:10] VITALS: BP 140/80; PULSE 74; RESP 15; TEMP 36.7; O2SAT 99
== END 2024-11-19 17:11 | disposition home or self-care (01) ==
PROVIDERS: Emergency Provider Student in an Organized Health Care Education/Training Program; PCP Family Medicine
DX: R07.81 Pleurodynia (principal); R51.9 Headache, unspecified; M25.511 Pain in right shoulder; V49.9XXA Car occupant (driver) (passenger) injured in unspecified traffic accident, initial encounter
CPT/HCPCS: 70450; 70486; 71045; 71250; 72125; 73030; 99284; 99285